=== PATIENT | male | born 1965 | race Caucasian/White ===

== ENCOUNTER 2016-12-16 15:41 | Observation (INO) | payer OTHER ==
--- NOTE | 2016-12-16 16:08 | ED ---
Chest Pain HPI - General Chief Complaint: Chest Pain Stated Complaint: Chest pain Time Seen by Provider: 12/16/16 15:41 Source: patient, RN/MD, EMS, RN notes reviewed, old records reviewed Mode of arrival: EMS Limitations: no limitations - History of Present Illness Initial Comments: This is a 51-year-old male who was seen at [facility] with complaints of chest pain today he was also found to be in atrial fibrillation. Initial set of cardiac enzymes are apparently done and within normal limits with the patient persists in having chest pain. Cardiology was consulted the patient was transferred here for further evaluation. Patient is on anticoagulation already and does have Nitropaste applied. No other complaints at this time. The pain this started around 10 AM and they get better after nitroglycerin. Also aspirin. MD Complaint: chest pain, other - Related Data Home Medications Medication Instructions Recorded Confirmed lamoTRIgine [LaMICtal] 50 mg PO HS 01/17/16 12/16/16 lamoTRIgine [LaMICtal] 100 mg PO BID@0700,1730 01/17/16 12/16/16 Amiodarone [Cordarone] 400 mg PO TID 12/16/16 12/16/16 Atorvastatin [Lipitor] 20 mg PO HS 12/16/16 12/16/16 Furosemide [Lasix] 40 mg PO DAILY 12/16/16 12/16/16 Ipratropium-Albuterol Nebulize 3 ml INHALATION RT-Q4H PRN 12/16/16 12/16/16 [Duoneb 0.5 mg-3 mg/3 ml Soln] Metolazone [Zaroxolyn] 2.5 mg PO DAILY 12/16/16 12/16/16 Nitroglycerin Sl Tabs [Nitrostat] 0.4 mg SUBLINGUAL Q5M PRN 12/16/16 12/16/16 OLANZapine [ZyPREXA] 10 mg PO HS 12/16/16 12/16/16 Rivaroxaban [Xarelto] 20 mg PO DAILY 12/16/16 12/16/16 Verapamil HCl [Verapamil ER] 240 mg PO DAILY 12/16/16 12/16/16 traZODone HCL [Desyrel] 100 mg PO HS 12/16/16 12/16/16 Previous Rx's Medication Instructions Recorded Losartan [Cozaar] 50 mg PO DAILY tab 07/18/15 OLANZapine [ZyPREXA] 2.5 mg PO DAILY tab 07/18/15 Venlafaxine HCl ER [Effexor XR] 300 mg PO DAILY cap.er.24h 07/18/15 Allergies Allergy/AdvReac Type Severity Reaction Status Date / Time No Known Allergies Allergy Verified 12/16/16 16:00 Review of Systems ROS Statement: Those systems with pertinent positive or pertinent negative responses have been documented in the HPI. ROS Other: All systems not noted in ROS Statement are negative. EKG Findings - EKG Results: EKG: interpreted by PAVAN (EKG showed atrial fibrillation rate was 87 QRS 76 QT/ QTc is 366/440 low-voltage QRS and nonspecific ST configuration I see no change when compared to that submitted from [facility].) Past Medical History Past Medical History: Atrial Fibrillation, COPD, Hypertension, Sleep Apnea/CPAP/ BIPAP Additional Past Medical History / Comment(s): Patient does not have CPAP. He does have nebulizer. History of Any Multi-Drug Resistant Organisms: None Reported Past Surgical History: Orthopedic Surgery Additional Past Surgical History / Comment(s): orthopedic surgery 15 yrs old Past Psychological History: Anxiety, Bipolar, Depression Smoking Status: Former smoker Past Alcohol Use History: None Reported Additional Past Alcohol Use History / Comment(s): Patient currently smokes 4-5 cigarettes per day. He has been smoking since for 20 years. He denies any medical marijuana, marijuana, street drug use currently. He denies any alcohol use. Past Drug Use History: None Reported, Cocaine, Marijuana Additional Drug Use History / Comment(s): He states he was once arrested for selling cocaine but does not use cocaine and he has remote history of using marijuana. - Past Family History Mother Family Medical History: Cancer Additional Family Medical History / Comment(s): Mother in her 40s from breast cancer. Father Family Medical History: Coronary Artery Disease (CAD), Hypertension Additional Family Medical History / Comment(s): Father at age 71 from coronary artery disease and history of hypertension Sister(s) Family Medical History: Neurologic Disorder Additional Family Medical History / Comment(s): Patient has 5 sisters and one has depression with suicidal ideation. Patient has 3 brothers with no major medical problems. He has 4 sons that are healthy. General Exam - General Exam Comments Initial Comments: Is a well-developed well-nourished awake alert oriented times female Limitations: no limitations General appearance: alert, in no apparent distress Head exam: Present: atraumatic, normocephalic, normal inspection Eye exam: Present: normal appearance, PERRL, EOMI. Absent: scleral icterus, conjunctival injection, periorbital swelling ENT exam: Present: normal exam, mucous membranes moist Neck exam: Present: normal inspection. Absent: tenderness, meningismus, lymphadenopathy Respiratory exam: Present: normal lung sounds bilaterally. Absent: respiratory distress, wheezes, rales, rhonchi, stridor Cardiovascular Exam: Present: irregular rhythm. Absent: systolic murmur, diastolic murmur, rubs, gallop, clicks GI/Abdominal exam: Present: soft, normal bowel sounds. Absent: distended, tenderness, guarding, rebound, rigid Extremities exam: Present: normal inspection, full ROM, normal capillary refill. Absent: tenderness, pedal edema, joint swelling, calf tenderness Back exam: Present: normal inspection Neurological exam: Present: alert, oriented X3, CN II-XII intact Psychiatric exam: Present: normal affect, normal mood Skin exam: Present: warm, dry, intact, normal color. Absent: rash Course Vital Signs 12/16/16 12/16/16 15:48 17:20 Temperature 98 F 97.9 F Pulse Rate 73 110 H Respiratory 18 18 Rate Blood Pressure 119/86 131/63 O2 Sat by Pulse 95 95 Oximetry Chest Pain MDM - MDM The patient will be admitted for evaluation by cardiology. Disposition Clinical Impression: Chest pain, Unstable angina pectoris Disposition: ADMITTED IP TO THIS HOSP Condition: Stable
[2016-12-16] MEDS ORDERED: MORPHINE SULFATE 4 MG/ML SYRINGE IVP STA (17:02)
--- NOTE | 2016-12-16 17:41 | ED ---
Disposition Clinical Impression: Chest pain, Unstable angina pectoris, Atrial fibrillation Disposition: ADMITTED IP TO THIS HOSP Condition: Stable Referrals: Matt Mccoy MD [Primary Care Provider] - 1-2 days
[2016-12-16] MEDS: SODIUM CHLORIDE 0.9% 1,000 ML IV SCH (18:05)
[2016-12-16] MEDS: NITROGLYCERIN OINT 1 INCH/GM PACKET TOPICAL SCH (18:05)
[2016-12-16] MEDS ORDERED: RIVAROXABAN 10 MG TAB PO SCH (18:30)
[2016-12-16] MEDS ORDERED: LOSARTAN 50 MG TAB PO STA (18:59)
[2016-12-16] MEDS ORDERED: FUROSEMIDE 10 MG/ML 4 ML VIAL IV SCH (19:00)
[2016-12-16] MEDS ORDERED: VENLAFAXINE HCL ER 150 MG CAP PO STA (19:01)
[2016-12-16 19:31] LABS: Creatine Kinase 21 U/L (55-170)
[2016-12-16] MEDS: MORPHINE SULFATE 4 MG/ML SYRINGE IVP PRN (19:43)
[2016-12-16 19:44] LABS: Creatine Kinase MB 0.4 ng/mL (0.0-2.4); Troponin I <0.012 ng/mL (0.000-0.034)
[2016-12-16] MEDS: FUROSEMIDE 10 MG/ML 4 ML VIAL IV SCH (19:45)
[2016-12-16] MEDS: METOLAZONE 2.5 MG TAB PO SCH (19:54)
[2016-12-16] MEDS: VERAPAMIL SR 240 MG TABLET.ER PO SCH (19:54)
--- NOTE | 2016-12-16 20:01 | XR ---
EXAMINATION TYPE: XR chest 2V DATE OF EXAM: 12/16/2016 7:31 PM COMPARISON: Today HISTORY: Short of breath TECHNIQUE: Frontal and lateral views of the chest are obtained. FINDINGS: There is no heart failure nor confluent pneumonic infiltrate. There is mild linear density in the midlung suarez consistent with subsegmental atelectasis. There is no pleural effusion. There are chest leads. Bony thorax is intact. IMPRESSION: Mild bilateral subsegmental atelectasis. No heart failure. No change.
[2016-12-16] MEDS: lamoTRIgine 25 MG TAB PO SCH (21:26)
[2016-12-16] MEDS: OLANZapine 10 MG TAB PO SCH (21:26)
[2016-12-16] MEDS: traZODone HCL 100 MG TAB PO SCH (21:26)
[2016-12-16] MEDS: ATORVASTATIN 20 MG TAB PO SCH (21:26)
[2016-12-16] MEDS ORDERED: AMIODARONE 200 MG TAB PO SCH (22:00)
[2016-12-17] MEDS: NITROGLYCERIN OINT 1 INCH/GM PACKET TOPICAL SCH ×2 (00:25→06:46)
[2016-12-17] MEDS: FUROSEMIDE 10 MG/ML 4 ML VIAL IV SCH (00:25)
[2016-12-17] MEDS: MORPHINE SULFATE 4 MG/ML SYRINGE IVP PRN ×4 (00:26→20:47)
[2016-12-17 00:27] LABS: Creatine Kinase 23 U/L (55-170)
[2016-12-17 00:41] LABS: Creatine Kinase MB 0.5 ng/mL (0.0-2.4); Troponin I <0.012 ng/mL (0.000-0.034)
[2016-12-17] MEDS: SODIUM CHLORIDE 0.9% 1,000 ML IV SCH ×3 (04:35→20:43)
[2016-12-17] MEDS: lamoTRIgine 100 MG TAB PO SCH ×2 (06:28→17:37)
[2016-12-17 06:42] LABS: Cholesterol 141 mg/dL (<200); HDL Cholesterol 53 mg/dL (40-60); Triglycerides 194 mg/dL (<150)
--- NOTE | 2016-12-17 08:22 | P.CRDCN ---
History of Present Illness Consult date: 12/17/16 Requesting physician: Frank Howard Consult reason: chest pain Chief complaint: Chest pressure History of present illness: This is a 51-year-old gentleman with history of COPD, asthma, hypertension, hyperlipidemia, morbid obesity, history of nicotine use, anxiety and depression, history of paroxysmal atrial fibrillation, who presents to the hospital with symptoms of pressure in his midsternal chest area. He states that it's the same symptoms he has when he goes into atrial fibrillation. Patient also has some shortness of breath, more than his usual with his COPD. Patient presented to [facility] yesterday, he had just been discharged from there 2 days prior to that. Patient was given 2 sublingual nitroglycerin on arrival there with relief of symptoms. He was transferred here to [facility] for further evaluation. The patient states that he also had seen Dr. ALEJANDRA Ziegler in the office in the past and that it was him that started him on Xarelto although he does state he only started recently. Patient also recently was on steroids and antibiotics for upper respiratory infection and exacerbation of his COPD. Lab data [facility], WBC 16.7, hemoglobin 15.2, INR 1.1, platelets 288, BUN 11, creatinine 0.6, sodium 138, potassium 4.8. Troponin 0.05 chest x-ray performed at [facility] did not reveal any acute process. EKG shows atrial fibrillation with a controlled ventricular response. S x-ray performed here revealed mild bilateral atelectasis with no evidence of heart failure pressure 110/60 with a heart rate in the 80s. 94% on 3 L of oxygen. Troponins here at [facility] negative 2. Cholesterol 141, triglycerides 194, LDL 49, HDL 53. The patient is currently on amiodarone 400 mg one tablet by mouth 3 times a day, aspirin 325 mg daily, Lipitor 20 daily, Lasix 40 mg IV every 8 hourly, Cozaar 50 mg daily, Zaroxolyn 2-1/2 mg daily, Nitropaste, Xarelto 20 mg daily. At the time of my examination this morning, patient denies any chest discomfort, mild wheezing. Past Medical History Past Medical History: Atrial Fibrillation, COPD, GERD/Reflux, Hypertension, Sleep Apnea/CPAP/BIPAP Additional Past Medical History / Comment(s): [facility]CURRENTLY DOES'N HAVE CPAP. EMPHYSEMA He does have nebulizer. HOME 02 3 LITERS N/C History of Any Multi-Drug Resistant Organisms: None Reported Past Surgical History: Orthopedic Surgery Additional Past Surgical History / Comment(s): 15 yrs old RT FOOT SX."KICKED A CAT FISH STINGER/BONE BROKE OFF IN HIS FOOT CAUSED INFECTION Past Anesthesia/Blood Transfusion Reactions: No Reported Reaction Additional Past Anesthesia/Blood Transfusion Reaction / Comment(s): NEVER HAD ANY BLOOD Past Psychological History: Anxiety, Bipolar, Depression Smoking Status: Former smoker Past Alcohol Use History: None Reported Additional Past Alcohol Use History / Comment(s): STARTED SMOKING 1989, QUIT 2.5 WEEKS AGO, WAS SMOKING JUST UNDER A PACK PER DAY. He denies any medical marijuana, marijuana, street drug use currently. He denies any alcohol use. Past Drug Use History: Cocaine, Marijuana Additional Drug Use History / Comment(s): PT QUIT DRUG USE IN 2001 - Past Family History Mother Family Medical History: Cancer Additional Family Medical History / Comment(s): Mother in her 40s from breast cancer. Father Family Medical History: Coronary Artery Disease (CAD), Hypertension Additional Family Medical History / Comment(s): Father at age 71 from coronary artery disease and history of hypertension Sister(s) Family Medical History: Neurologic Disorder Additional Family Medical History / Comment(s): Patient has 5 sisters and one has depression with suicidal ideation. Patient has 3 brothers with no major medical problems. He has 4 sons that are healthy. Medications and Allergies Home Medications Medication Instructions Recorded Confirmed Type lamoTRIgine [LaMICtal] 50 mg PO HS 01/17/16 12/16/16 History lamoTRIgine [LaMICtal] 100 mg PO BID@0700,1730 01/17/16 12/16/16 History Amiodarone [Cordarone] 400 mg PO TID 12/16/16 12/16/16 History Atorvastatin [Lipitor] 20 mg PO HS 12/16/16 12/16/16 History Furosemide [Lasix] 40 mg PO DAILY 12/16/16 12/16/16 History Ipratropium-Albuterol Nebulize 3 ml INHALATION RT-Q4H PRN 12/16/16 12/16/16 History [Duoneb 0.5 mg-3 mg/3 ml Soln] Metolazone [Zaroxolyn] 2.5 mg PO DAILY 12/16/16 12/16/16 History Nitroglycerin Sl Tabs [Nitrostat] 0.4 mg SUBLINGUAL Q5M PRN 12/16/16 12/16/16 History OLANZapine [ZyPREXA] 10 mg PO HS 12/16/16 12/16/16 History Rivaroxaban [Xarelto] 20 mg PO DAILY 12/16/16 12/16/16 History Verapamil HCl [Verapamil ER] 240 mg PO DAILY 12/16/16 12/16/16 History traZODone HCL [Desyrel] 100 mg PO HS 12/16/16 12/16/16 History Allergies Allergy/AdvReac Type Severity Reaction Status Date / Time No Known Allergies Allergy Verified 12/16/16 16:00 Physical Exam Vitals: Vital Signs Temp Pulse Pulse Pulse Resp BP BP 12/17/16 04:00 84 18 111/64 12/17/16 00:00 91 18 108/69 12/16/16 20:08 98.4 F 59 L 16 139/89 12/16/16 20:00 98.4 F 92 16 12/16/16 18:39 98.1 F 98 18 135/82 12/16/16 18:04 97.1 F L 69 18 125/85 Pulse Ox 12/17/16 04:00 94 L 12/17/16 00:00 91 L 12/16/16 20:08 94 L 12/16/16 20:00 12/16/16 18:39 95 12/16/16 18:04 96 Intake and Output 12/16/16 12/17/16 12/17/16 22:59 06:59 14:59 Other: Voiding Method Toilet Urinal # Voids 1 4 Weight 117.8 kg 117.2 kg PHYSICAL EXAMINATION: HEENT: Head is atraumatic, normocephalic. Pupils equal, round. Neck is supple. There is no elevated jugular venous pressure. HEART EXAMINATION: Heart S1 and S2 irregular irregular CHEST EXAMINATION: Lungs reveal scattered wheezing throughout with decreased air exchange ABDOMEN: Soft, obese, nontender. Bowel sounds are heard. No organomegaly noted. EXTREMITIES: 2+ peripheral pulses with trace evidence of peripheral edema and no calf tenderness noted. NEUROLOGIC patient is awake, alert and oriented -3. . Results Cardiac Enzymes 12/16/16 12/16/16 Range/Units 18:56 23:37 CK-MB (CK-2) 0.4 0.5 (0.0-2.4) ng/mL Troponin I <0.012 <0.012 (0.000-0.034) ng/mL Lipids 12/17/16 Range/Units 05:39 Triglycerides 194 H (<150) mg/dL Cholesterol 141 (<200) mg/dL HDL Cholesterol 53 (40-60) mg/dL Current Medications Generic Name Dose Route Start Last Admin Trade Name Freq PRN Reason Stop Dose Admin Albuterol/Ipratropium 3 ml 12/16/16 17:39 Duoneb 0.5 Mg-3 Mg/3 Ml Soln INHALATION RT-Q4H PRN Shortness Of Breath Amiodarone HCl 400 mg 12/16/16 22:00 12/16/16 21:25 Cordarone PO 400 mg TID BALA Administration Aspirin 325 mg 12/17/16 09:00 Aspirin PO DAILY [facility] Atorvastatin Calcium 20 mg 12/16/16 21:00 12/16/16 21:26 Lipitor PO 20 mg HS BALA Administration Furosemide 40 mg 12/16/16 19:15 12/17/16 00:25 Lasix IV 40 mg Q8HR BALA Administration Sodium Chloride 1,000 mls @ 100 mls/hr 12/16/16 17:45 12/17/16 04:35 Saline 0.9% IV Not Given .Q10H BALA Lamotrigine 100 mg 12/17/16 07:00 12/17/16 06:28 Lamictal PO 100 mg BID@0700,1730 BALA Administration Lamotrigine 50 mg 12/16/16 21:00 12/16/16 21:26 Lamictal PO 50 mg HS BALA Administration Losartan Potassium 50 mg 12/17/16 09:00 Cozaar PO DAILY BALA Metolazone 2.5 mg 12/16/16 19:00 12/16/16 19:54 Zaroxolyn PO 2.5 mg DAILY BALA Administration Morphine Sulfate 4 mg 12/16/16 17:38 12/17/16 04:34 Morphine Sulfate (Inj) IVP 4 mg Q4HR PRN Administration Pain Nitroglycerin 1 inch 12/16/16 18:00 12/17/16 06:46 Nitro-Bid Oint TOPICAL 1 inch Q6HR BALA Administration Olanzapine 10 mg 12/16/16 21:00 12/16/16 21:26 Zyprexa PO 10 mg HS BALA Administration Olanzapine 2.5 mg 12/17/16 09:00 Zyprexa PO DAILY BALA Rivaroxaban 20 mg 12/16/16 18:30 12/16/16 21:26 Xarelto PO 20 mg W/SUPPER BALA Administration Trazodone HCl 100 mg 12/16/16 21:00 12/16/16 21:26 Desyrel PO 100 mg HS BALA Administration Venlafaxine HCl 300 mg 12/17/16 09:00 Effexor Xr PO DAILY BALA Verapamil HCl 240 mg 12/16/16 19:15 12/16/16 19:54 Isoptin Sr PO 240 mg DAILY BALA Administration Intake and Output 12/16/16 12/17/16 12/17/16 22:59 06:59 14:59 Other: Voiding Method Toilet Urinal # Voids 1 4 Weight 117.8 kg 117.2 kg EKG Interpretations (text) EKG shows atrial fibrillation with a controlled ventricular response Assessment and Plan Plan: Assessment and plan #1 chest pain, atypical for acute coronary syndrome. Troponins negative 3. EKG shows atrial fibrillation with a controlled ventricular response, no acute changes noted. #2 atrial fibrillation with controlled ventricular response, paroxysmal in nature. Patient recently started on xarelto #3 hypertension #4 hyperlipidemia #5 morbid obesity #6 COPD, with recent exacerbation, on tapered dose of steroids. #7 asthma #8 bipolar disorder and depression #9 nicotine dependence history, patient states he quit smoking recently Plan We will obtain an echocardiogram with Doppler study. Discontinue aspirin. Decrease dose of amiodarone. Discontinue Nitropaste. Obtain records from the office. Further recommendations to follow. DNP note has been reviewed, I agree with a documented findings and plan of care. Patient was seen and examined.
[2016-12-17] MEDS ORDERED: ASPIRIN 325 MG TAB PO SCH (09:00)
[2016-12-17] MEDS ORDERED: METOLAZONE 2.5 MG TAB PO SCH (09:00)
[2016-12-17] MEDS ORDERED: FUROSEMIDE 40 MG TAB PO SCH (09:00)
[2016-12-17] MEDS ORDERED: VERAPAMIL SR 240 MG TABLET.ER PO SCH (09:00)
[2016-12-17] MEDS: IPRATROPIUM-ALBUTEROL 3 ML NEB INHALATION PRN ×3 (09:06→15:17)
[2016-12-17] MEDS ORDERED: ALPRAZolam 0.25 MG TAB PO PRN (09:38)
[2016-12-17] MEDS ORDERED: NITROGLYCERIN SL TABS 0.4 MG TAB SUBLINGUAL PRN (09:38)
[2016-12-17] MEDS ORDERED: ASPIRIN 325 MG TAB PO STA (09:38)
[2016-12-17] MEDS ORDERED: ALPRAZolam 0.5 MG TAB PO PRN (09:38)
[2016-12-17] MEDS ORDERED: SODIUM CHLORIDE 0.9% 1,000 ML in EMPTY BAG 1 BAG IV ONE (09:38)
[2016-12-17] MEDS ORDERED: ATORVASTATIN 80 MG TAB PO STA (09:38)
--- NOTE | 2016-12-17 09:42 | P.PN ---
Progress Note - Text This is an addendum to the dictated cardiology consultation. The patient has a known history of atrial fibrillation, probably permanent had multiple admission to [facility] recently who presented yesterday to the emergency room at [facility] with symptoms of chest discomfort and progressive dyspnea. He has been followed by Dr. Ziegler in the past. He has no history of documented ischemic heart disease or congestive heart failure but he has been complaining of the chest discomfort on and off not always exertional in pattern. He has occasional peripheral edema but no PND nor orthopnea. He has stopped smoking 2 weeks ago. He has been started on anticoagulation. His physical examination shows scattered rhonchi and wheezes, atrial fibrillation with trace edema. In view of the persistent recurrent symptoms of chest discomfort, the history of atrial fibrillation, hypertension and hyperlipidemia I have recommended to proceed with coronary angiography. He'll be scheduled to undergo the procedure by Dr. Ziegler tomorrow. The risks and the complications were discussed with the patient who is in full understanding and agreement. Thank you for this consult we will follow with you.
[2016-12-17] MEDS: AMIODARONE 200 MG TAB PO SCH ×3 (11:13→20:45)
[2016-12-17] MEDS: OLANZapine 2.5 MG TAB PO SCH (11:14)
[2016-12-17] MEDS: LOSARTAN 50 MG TAB PO SCH (11:14)
[2016-12-17] MEDS: METOLAZONE 2.5 MG TAB PO SCH (11:15)
[2016-12-17] MEDS: VENLAFAXINE HCL ER 150 MG CAP PO SCH (11:15)
[2016-12-17] MEDS: VERAPAMIL SR 240 MG TABLET.ER PO SCH (11:16)
--- NOTE | 2016-12-17 12:54 | ECHOF ---
Referral Reason:AFIB MEASUREMENTS -------- HEIGHT: 165.1 cm WEIGHT: 117.0 kg BP: RVIDd: 3.3 cm (< 3.3) IVSd: 1.4 cm (0.6 - 1.1) LVIDd: 4.4 cm (3.9 - 5.3) LVPWd: 1.4 cm (0.6 - 1.1) IVSs: 1.7 cm LVIDs: 3.6 cm LVPWs: 1.8 cm LA Diam: 4.7 cm (2.7 - 3.8) LAESV Index (A-L): 45.21 ml/m Ao Diam: 3.0 cm (2.0 - 3.7) AV Cusp: 2.3 cm (1.5 - 2.6) LA Diam: 4.7 cm (2.7 - 3.8) MV EXCURSION: 23.905 mm (> 18.000) MV EF SLOPE: 148 mm/s (70 - 150) EPSS: 0.6 cm MV E Hung: 0.64 m/s MV DecT: 198 ms MV A Hung: 0.40 m/s MV E/A Ratio: 1.61 RAP: 5.00 mmHg RVSP: 28.56 mmHg FINDINGS -------- Atrial fibrillation. This was a technically adequate study. There is mild concentric left ventricular hypertrophy. Overall left ventricular systolic function is low-normal with, an EF between 50 - 55 %. The right ventricle is normal in size. LA is severely dilated >40 ml/m2 The right atrial size is normal. There is mild aortic valve sclerosis. There is no evidence of aortic regurgitation. Mild mitral annular calcification present. Mild mitral regurgitation is present. Mild tricuspid regurgitation present. There is no evidence of pulmonary hypertension. The right ventricular systolic pressure, as measured by Doppler, is 28.56mmHg. There is no pulmonic regurgitation present. The aortic root size is normal. There is no pericardial effusion. CONCLUSIONS -------- 1. There is mild concentric left ventricular hypertrophy. 2. There is no pulmonic regurgitation present. 3. The aortic root size is normal. 4. There is no pericardial effusion. 5. Overall left ventricular systolic function is low-normal with, an EF between 50 - 55 %. 6. LA is severely dilated >40 ml/m2 7. There is mild aortic valve sclerosis. 8. Mild mitral annular calcification present. 9. Mild mitral regurgitation is present. 10. Mild tricuspid regurgitation present. 11. There is no evidence of pulmonary hypertension. 12. The right ventricular systolic pressure, as measured by Doppler, is 28.56mmHg. [employer] TEACHER: Jaelyn Gregory RDCS
--- NOTE | 2016-12-17 14:02 | HP ---
DATE OF ADMISSION: 12/16/2016 PRESENTING COMPLAINT: Heart racing. HISTORY OF PRESENTING COMPLAINT: This is a 51-year-old patient of Dr. Mccoy whose chronic medical stable conditions include GERD, hypertension, bipolar disorder. Patient is on home oxygen 3 L. Patient has had about 10 admissions to [facility] in the last 6 months he states for episode symptoms that include breaking into a cold sweat, short of breath, chest pain, heart racing. Found to be in atrial fibrillation. Patient had another episode yesterday and he was transferred here by Dr. Steve Ziegler for further work-up. Patient also has been wheezing, coughing, having short of breath. Patient stopped smoking 2 weeks ago. REVIEW OF SYSTEMS: CONSTITUTIONAL: Tired. HEENT: None. RESPIRATORY: As above. CARDIOVASCULAR: Heart racing. GASTROINTESTINAL: None. GENITOURINARY: None. MUSCULOSKELETAL: Aches and pains in the joints. DERMATOLOGICAL: None. HEMATOLOGICAL: None. LYMPHATIC: None. PSYCHIATRY: None. NEUROLOGICAL: None. PAST MEDICAL HISTORY: Atrial fibrillation, COPD, GERD, hypertension, sleep apnea being worked up, emphysema home oxygen 3 L. PAST SURGICAL HISTORY: Right foot surgery. SOCIAL HISTORY: Patient smoked for about 27 years; stopped smoking about 2 weeks ago. Patient in 2001 stopped doing cocaine, marijuana, crack, alcohol. Lives with his girlfriend. Patient is on disability. FAMILY HISTORY: Mother of breast cancer in his 40s. HOME MEDICATIONS: 1. Desyrel 100 mg q.h.s. 2. Lamictal 50 mg q.h.s. 3. Lamictal 100 mg p.o. b.i.d. 4. Verapamil ER 240 mg daily. 5. Effexor XR 300 mg daily. 6. Xarelto 20 mg daily. 7. Zyprexa 2.5 p.o. daily. 8. Zyprexa 10 mg p.o. q.h.s. 9. Nitrostat 0.4 sublingual q.5 p.r.n. 10. Zaroxolyn 2.5 p.o. daily. 11. Cozaar 50 mg p.o. daily. 12. DuoNeb q.4 p.r.n. 13. Lasix 40 mg a day. 14. Lipitor 20 mg q.h.s. 15. Cordarone 400 mg p.o. t.i.d. ALLERGIES: None. On examination, temperature 98.4, pulse 91, respirations 18, blood pressure 108/69, pulse ox 91% on room air. GENERAL APPEARANCE: Obese, BMI of 41%, sitting up, tired-appearing. EYES: Pupils equal, conjunctivae normal. HEENT: Oral cavity normal. NECK: JVD not raised. Mass not palpable. Respiratory effort increased. LUNGS: Diminished breath sounds. Mild wheezing. CARDIOVASCULAR: First and second sounds normal. No edema. ABDOMEN: Soft, nontender. Liver and spleen not palpable. LYMPHATIC: No lymph node palpable in neck or axillae. PSYCHIATRY: Alert and oriented x3. Mood and affect normal. NEUROLOGICAL: Pupils equal. Cranial nerves grossly intact. Power and sensation grossly intact. INVESTIGATIONS: Troponin x2 are negative. EKG shows atrial fibrillation, rate controlled. ASSESSMENT: 1. Persistent atrial fibrillation, sometimes with a high heart rate. 2. Acute chronic obstructive pulmonary disease exacerbation. The patient just stopped smoking 3. Gastroesophageal reflux disease. 4. Essential hypertension. 5. Morbid obesity, body mass index of 41.7. 6. Chronic hypoxic respiratory failure on 3 L of oxygen at home. PLAN: Home medications are resumed. Patient already on Xarelto. Patient is put on breathing treatments. Cardiology is consulted because patient does get chest pressures. Cardiac ischemia, rule out with a cardiac catheterization. Patient counseled again to keep off smoking.
[2016-12-17] MEDS: ATORVASTATIN 20 MG TAB PO SCH (20:44)
[2016-12-17] MEDS: FUROSEMIDE 40 MG TAB PO SCH (20:44)
[2016-12-17] MEDS: lamoTRIgine 25 MG TAB PO SCH (20:44)
[2016-12-17] MEDS: OLANZapine 10 MG TAB PO SCH (20:45)
[2016-12-17] MEDS: traZODone HCL 100 MG TAB PO SCH (20:45)
[2016-12-18] MEDS: MORPHINE SULFATE 4 MG/ML SYRINGE IVP PRN ×5 (02:29→21:59)
[2016-12-18] MEDS: IPRATROPIUM-ALBUTEROL 3 ML NEB INHALATION PRN (05:46)
[2016-12-18] MEDS: lamoTRIgine 100 MG TAB PO SCH ×2 (06:21→17:08)
[2016-12-18] MEDS: AMIODARONE 200 MG TAB PO SCH ×3 (06:21→20:43)
[2016-12-18] MEDS: OLANZapine 2.5 MG TAB PO SCH (06:21)
[2016-12-18] MEDS: LOSARTAN 50 MG TAB PO SCH (06:21)
[2016-12-18] MEDS: VERAPAMIL SR 240 MG TABLET.ER PO SCH (06:22)
[2016-12-18] MEDS: VENLAFAXINE HCL ER 150 MG CAP PO SCH (06:22)
[2016-12-18] MEDS: METOLAZONE 2.5 MG TAB PO SCH (06:22)
[2016-12-18 07:28] LABS: Anion Gap 10 mmol/L; Blood Urea Nitrogen 22 mg/dL (9-20); Calcium 8.6 mg/dL (8.4-10.2); Carbon Dioxide 31 mmol/L (22-30); Chloride 96 mmol/L (98-107); Glucose 104 mg/dL (74-99); Non-African American GFR(MDRD) >60 (>60 ml/min/1.73 sqM); Potassium 3.2 mmol/L (3.5-5.1); Sodium 137 mmol/L (137-145)
[2016-12-18] MEDS: SODIUM CHLORIDE 0.9% 1,000 ML IV SCH ×2 (08:03→20:27)
[2016-12-18] MEDS: FUROSEMIDE 40 MG TAB PO SCH ×2 (08:09→20:43)
[2016-12-18] MEDS: POTASSIUM CHLORIDE 20 MEQ, LIDOCAINE 2% INJ 20 MG in SODIUM CHLORIDE 0.9% 100 ML IVPB SCH ×2 (08:59→11:07)
[2016-12-18] MEDS ORDERED: LIDOCAINE 2% INJ 20 MG/ML (20 ML MDV) ONE (10:57)
[2016-12-18] MEDS ORDERED: ASPIRIN 325 MG TAB ONE (10:57)
[2016-12-18] MEDS ORDERED: MIDAZOLAM 2 MG/2 ML VIAL ONE (10:58)
[2016-12-18] MEDS ORDERED: diphenhydrAMINE 50 MG/ML 1 ML VIAL ONE (10:58)
[2016-12-18] MEDS ORDERED: SODIUM CHLORIDE 0.9% (PF) 10 ML VIAL ONE (10:59)
[2016-12-18] MEDS ORDERED: VERAPAMIL 2.5 MG/ML 2 ML AMP ONE (10:59)
[2016-12-18] MEDS ORDERED: IV FLUID CONTINUATION 175 ML IV ONE (11:18)
[2016-12-18] MEDS ORDERED: SODIUM CHLORIDE 0.9% 500 ML IV ONE (11:25)
[2016-12-18] MEDS ORDERED: ASPIRIN 325 MG TAB PO ONE (11:25)
[2016-12-18] MEDS ORDERED: diphenhydrAMINE 50 MG/ML 1 ML VIAL IVP ONE (11:28)
[2016-12-18] MEDS ORDERED: MIDAZOLAM 2 MG/2 ML VIAL IV ONE (11:30)
[2016-12-18] MEDS ORDERED: LIDOCAINE 2% INJ 20 MG/ML SQ ONE (11:33)
[2016-12-18] MEDS ORDERED: HEPARIN SODIUM 1,000 UNIT/ML VIAL ONE (11:35)
[2016-12-18] MEDS: VERAPAMIL SYRINGE (5 MG/10 ML) INTRAARTER ONE ×2 (11:36→11:55)
[2016-12-18] MEDS ORDERED: IOHEXOL 350 MG/ML 100 ML BOTTLE INJ ONE (11:55)
[2016-12-18] MEDS ORDERED: RX INFO: IV CONTRAST WAS GIVEN 1 EACH MISC MISCELLANE PRN (12:07)
[2016-12-18] MEDS ORDERED: SODIUM CHLORIDE 0.9% 1,000 ML IV SCH (12:15)
[2016-12-18] MEDS: methylPREDNISolone SOD SUCCI 40 MG/ML 1 ML VIAL IV SCH ×2 (17:06→23:19)
[2016-12-18] MEDS: METOPROLOL TARTRATE 25 MG TAB PO SCH ×2 (17:08→20:45)
--- NOTE | 2016-12-18 19:56 | PN ---
DATE OF SERVICE: 12/18/2016 PRESENTING COMPLAINT: Heart racing, wheezing. INTERVAL HISTORY: This is a patient who presented with atrial fibrillation with rapid ventricular rate. Heart rate is better controlled today. The patient did undergo a cardiac cath. Troponin did not show any blockages. The patient was also admitted for chronic obstructive pulmonary disease exacerbation. Some shortness of breath and wheezing is present. Review of systems done for constitutional, cardiovascular, GI, pulmonary; relevant findings as above. Current medications are reviewed and include: On examination, afebrile, pulse 91, respirations 20, blood pressure 101/85, pulse of 93% on 2 liters. GENERAL APPEARANCE: Lying in bed, tired-appearing. EYES: Pupils equal conjunctivae normal. NECK: JVD not raised. Mass not palpable. RESPIRATORY: Effort increased. LUNGS: Diminished breath sounds. Mild wheezing. CARDIOVASCULAR: Heart sounds irregular. No edema. ABDOMEN: Soft, nontender. Liver and spleen not palpable. PSYCHIATRY: Alert and oriented x3. Mood and affect normal. INVESTIGATIONS: Potassium 3.2. BUN 22, creatinine 1.07. ASSESSMENT: 1. Persistent atrial fibrillation, heart rate increased on presentation. 2. Acute chronic obstructive pulmonary disease exacerbation in a patient who just stopped smoking. 3. Gastroesophageal reflux disease. 4. Essential hypertension. 5. Moderate obesity, body mass index of 41.7. 6. Chronic hypoxic respiratory failure, on 3 liters of oxygen at home. PLAN: Continue bronchodilators. Give a short burst of steroids, hoping the patient to be discharged in the next 24 hours. The patient was told again to keep off smoking.
[2016-12-18] MEDS: lamoTRIgine 25 MG TAB PO SCH (20:43)
[2016-12-18] MEDS: OLANZapine 10 MG TAB PO SCH (20:43)
[2016-12-18] MEDS: ATORVASTATIN 20 MG TAB PO SCH (20:43)
[2016-12-18] MEDS: traZODone HCL 100 MG TAB PO SCH (20:43)
[2016-12-18] MEDS: IPRATROPIUM-ALBUTEROL 3 ML NEB INHALATION SCH ×2 (21:05→21:06)
[2016-12-18] MEDS: FUROSEMIDE 10 MG/ML 4 ML VIAL IV SCH (21:14)
--- NOTE | 2016-12-18 21:27 | CC ---
DATE OF SERVICE: PROCEDURE: Left heart catheterization, coronary angiography and left ventriculography. PERFORMED BY: Dr. Steve Ziegler. CLINICAL INFORMATION: Marcell Noonan is a 51-year-old gentleman with a severe advanced COPD, smoking and he smoked up until about a week to 10 days ago. He has recurrent episodes of atrial fibrillation, which is now persistent. He comes in with increasing shortness of breath and also chest discomfort. In view of his ongoing chest pressure and heaviness, he was advised coronary angiography after due discussion and explaining the risks, benefits, and options. There were no family members available. PROCEDURE NOTE: Under local anesthesia and strict aseptic precautions, a 6 Indian introducer was placed in general placed in the right radial artery. I used an Ultima one catheter for selective coronary injection of the left system. I used the same catheter for a conus branch, which was coming from a separate ostium. I used a standard JR 4 catheter for selective injection of the small nondominant RCA, which arose just below the conus branch with a separate origin. LV gram was performed using a pigtail catheter. The patient tolerated the procedure well. The sheath was taken out and TR band applied as per protocol and the saturation of the fingers was same as it was on his left hand. It was about 90%. Results were discussed with the patient. No other family member was available and I also spoke to Dr. Bravo. Patient was sent to the room in stable condition. CARDIAC CATHETERIZATION FINDINGS: The left ventricular end diastolic pressure was 15 mmHg and there was no gradient across aortic valve. CORONARY ANGIOGRAPHIC FINDINGS: RIGHT CORONARY ARTERY: Technically this is a nondominant vessel. There is a separate conus branch that comes off and this is free of significant disease. Right coronary artery is a nondominant, small-caliber, vessel that gives off an acute marginal supplies limited amount of myocardium. No significant disease, minor irregularities noted. LEFT MAIN CORONARY ARTERY: Short, patent, disease-free vessel that bifurcates into LAD and circumflex. LEFT ANTERIOR DESCENDING CORONARY ARTERY: Good caliber vessel extends along the anterior wall, gives off several septal branches, a good-sized diagonal branch in the midportion, runs all the way to the apex, curves over the apex and supplies the entire inferoapical wall. There are only minor irregularities. No significant disease and LAD is a large distribution vessel. LEFT POSTERIOR CIRCUMFLEX CORONARY ARTERY: Technically a very dominant vessel, gives off a large obtuse marginal in the midportion, 2 small obtuse marginals proximally and all of these obtuse marginal do not have any significant disease. The distal circumflex divides into PLV and PDA, both of which have minor irregularities and supply a fair amount of myocardium. The circumflex is therefore dominant and has minor irregularities. No significant disease. LEFT VENTRICULOGRAM: This was performed in 30 degree JOHANSEN projection and revealed left ventricle, which is at upper limits of normal with a mild global decrease in contractility, estimated ejection fraction of 45% without mitral regurgitation. FINAL IMPRESSION: This patient has a left dominant system, no significant obstructive CAD, slightly elevated filling pressures and mild global decrease in contractility estimated ejection fraction of 45%. He has chronic atrial fibrillation and this could be explanation for his low ejection fraction. RECOMMENDATIONS: Findings were discussed with the patient at length. There were no family members available. I will switch him to amiodarone and beta yonas for rate control and also seek full pulmonary evaluation and based on this, he can hopefully be discharged in next 24 to 48 hours. The patient has been counseled regarding the need to quit smoking.
[2016-12-19] MEDS: MORPHINE SULFATE 4 MG/ML SYRINGE IVP PRN ×2 (02:03→06:49)
[2016-12-19] MEDS: SODIUM CHLORIDE 0.9% 1,000 ML IV SCH (06:27)
[2016-12-19] MEDS: methylPREDNISolone SOD SUCCI 40 MG/ML 1 ML VIAL IV SCH (06:30)
[2016-12-19] MEDS: lamoTRIgine 100 MG TAB PO SCH (06:30)
[2016-12-19 06:40] LABS: Basophils # (A) 0.1 k/uL (0-0.2); Basophils % (A) 1 %; CH 30.8; CHCM 33.4; Eosinophils % (A) 0 %; HCT 42.4 % (39.0-53.0); HDW 2.54; HGB 14.4 gm/dL (13.0-17.5); Luc # (Auto) 0.05; Luc % (Auto) 0; Lymphocytes # (A) 0.7 k/uL (1.0-4.8); Lymphocytes % (A) 6 %; MCH 31.3 pg (25.0-35.0); MCHC 33.9 g/dL (31.0-37.0); MCV 92.4 fL (80.0-100.0); Mean Platelet Volume 7.8; Monocytes # (A) 0.2 k/uL (0-1.0); Monocytes % (A) 2 %; Neutrophils # (A) 10.2 k/uL (1.3-7.7); Neutrophils % (A) 91 %; RBC 4.59 m/uL (4.30-5.90); WBC 11.2 k/uL (3.8-10.6); WBC (Perox) 11.57
[2016-12-19 06:57] LABS: Anion Gap 13 mmol/L; Blood Urea Nitrogen 21 mg/dL (9-20); Calcium 9.4 mg/dL (8.4-10.2); Carbon Dioxide 30 mmol/L (22-30); Chloride 94 mmol/L (98-107); Glucose 145 mg/dL (74-99); Non-African American GFR(MDRD) >60 (>60 ml/min/1.73 sqM); Potassium 3.9 mmol/L (3.5-5.1); Sodium 137 mmol/L (137-145)
[2016-12-19] MEDS: VENLAFAXINE HCL ER 150 MG CAP PO SCH (07:59)
[2016-12-19] MEDS: FUROSEMIDE 40 MG TAB PO SCH (07:59)
[2016-12-19] MEDS: AMIODARONE 200 MG TAB PO SCH (07:59)
[2016-12-19] MEDS: OLANZapine 2.5 MG TAB PO SCH (07:59)
[2016-12-19] MEDS: METOPROLOL TARTRATE 25 MG TAB PO SCH (08:00)
[2016-12-19] MEDS: LOSARTAN 50 MG TAB PO SCH (08:00)
[2016-12-19] MEDS: METOLAZONE 2.5 MG TAB PO SCH (08:00)
[2016-12-19 08:04] VITALS: TEMP 97.4
[2016-12-19] MEDS: IPRATROPIUM-ALBUTEROL 3 ML NEB INHALATION SCH ×2 (08:31→11:53)
--- NOTE | 2016-12-19 11:20 | P.PN ---
Subjective This a 51-year-old gentleman who follows with Dr. ALEJANDRA Ziegler in the office. He has a history of COPD, nicotine dependence, atrial fibrillation. He presented to the hospital with complaints of increasing shortness of breath and chest discomfort. He underwent cardiac catheterization yesterday by Dr. ALEJANDRA Ziegler that showed significant obstructive CAD, slightly elevated filling pressures and mild global decreased contractility with an ejection fraction of 45%. Yesterday his amiodarone was decreased to 20 mg by mouth 3 times a day and he was started on Lopressor 25 mg by mouth 3 times a day. Heart rates remain slightly elevated at around 100-120. Upon examination this morning, patient is sitting up in bed without any complaints of distress. He denies complaints of chest discomfort, shortness of breath, palpitations, dizziness, lightheadedness or syncope. He does complain of some lower extremity edema but he says is chronic but better than usual. Objective - Vital Signs Vital signs: Vital Signs Temp 97.4 F L 12/19/16 08:00 Pulse 88 12/19/16 08:46 Resp 18 12/19/16 08:00 BP 119/74 12/19/16 08:00 Pulse Ox 90 L 12/19/16 08:33 Intake & Output 12/18/16 12/19/16 12/19/16 18:59 06:59 18:59 Intake Total 560 1080 240 Output Total 800 1300 Balance -240 -220 240 Weight 119.1 kg Intake: IV 200 Intake, IV Titration 600 Amount Sodium Chloride 0.9% 1, 600 000 ml @ 75 mls/hr IV . [id number] [facility] Rx#:[id number] Oral 360 480 240 Output: Urine 800 1300 Other: Voiding Method Toilet Toilet Toilet Urinal Urinal Urinal # Voids 2 # Bowel Movements 0 - Exam PHYSICAL EXAMINATION: HEENT: Head is atraumatic, normocephalic. Pupils equal, round. Neck is supple. There is no elevated jugular venous pressure. HEART EXAMINATION: Heart sounds irregular irregular, S1 and S2 normal. No murmur or gallop heard. CHEST EXAMINATION: Lungs reveal scattered rhonchi and wheezes. No chest wall tenderness is noted on palpation or with deep breathing. ABDOMEN: Soft, obese, nontender. Bowel sounds are heard. No organomegaly noted. EXTREMITIES: 2+ peripheral pulses with evidence of trace peripheral edema and no calf tenderness noted. NEUROLOGIC patient is awake, alert and oriented x3. . - Labs CBC & Chem 7: 12/19/16 06:10 12/19/16 06:10 Labs: Abnormal Lab Results - Last 24 Hours (Table) 12/19/16 12/19/16 Range/Units 06:10 06:10 WBC 11.2 H (3.8-10.6) k/uL Neutrophils # 10.2 H (1.3-7.7) k/uL Lymphocytes # 0.7 L (1.0-4.8) k/uL Chloride 94 L (98-107) mmol/L BUN 21 H (9-20) mg/dL Glucose 145 H (74-99) mg/dL Assessment and Plan Plan: Assessment and plan #1 chest pain, atypical with cardiac catheterization showing no obstructive coronary artery disease #2 atrial fibrillation with variable ventricular response, on amiodarone and metoprolol, anticoagulated on Xarelto #3 hypertension #4 hyperlipidemia #5 morbid obesity #6 COPD #7 asthma #8 bipolar disorder and depression #9 nicotine dependence history, patient states he recently quit smoking Cardiac standpoint, we will increase metoprolol to 50 mg by mouth twice a day, continue amiodarone 200 mg by mouth 3 times a day. From our standpoint patient is stable for discharge. He will follow-up in the office with Dr. ALEJANDRA Ziegler in one week. [employer] note has been reviewed, I agree with a documented findings and plan of care. Patient was seen and examined.
[2016-12-19 13:05] VITALS: BP 99/52; PULSE 88; RESP 16
--- NOTE | 2016-12-19 14:48 | P.CNPUL ---
History of Present Illness Consult date: 12/19/16 Reason for consult: COPD History of present illness: 51-year-old male patient, a chronic smoker with known history of COPD and suspected obstructive sleep apnea, along with history of paroxysmal atrial fibrillation, hyperlipidemia, hypertension, generalized anxiety disorder/ depression, who comes into the hospital because of increased cough, chest congestion, midsternal pain. The patient was initially seen at [facility] and following that the patient was brought into [facility] for further investigation. The patient underwent a cardiac catheterization and he turned out to have normal coronaries. At that point, a pulmonary consultation was requested regarding symptoms of COPD and bronchitis. The patient is already been started on a combination of bronchodilators and steroids. He is or the feeling better. His chest discomfort and congestion is improved significantly. He is a chronic smoker. He utilizes Symbicort as maintenance on outpatient basis however he has not been compliant to his respiratory medications. He also has typical features of obstructive sleep apnea. He snores loud stops breathing at night and he wakes up quite sleepy and somnolent during the day and he has already been scheduled to undergo a screening polysomnogram at [facility] in 2 weeks time. No DVTs. No pulmonary embolism. He is on Xarelto and is tolerating that anticoagulants without any major difficulties or complications or side effects. Review of Systems For review of system was done and the positive signs are almost above in history of present illness Past Medical History Past Medical History: Atrial Fibrillation, COPD, GERD/Reflux, Hypertension, Sleep Apnea/CPAP/BIPAP Additional Past Medical History / Comment(s): Obesity, COPD, paroxysmal defibrillation, hypertension, hyperlipidemia, generalized anxiety disorder and depression, suspected obstructive sleep apnea awaiting further investigation, GE reflux, History of Any Multi-Drug Resistant Organisms: None Reported Past Surgical History: Orthopedic Surgery Additional Past Surgical History / Comment(s): 15 yrs old RT FOOT SX."KICKED A CAT FISH STINGER/BONE BROKE OFF IN HIS FOOT CAUSED INFECTION, cardiac catheterization Past Anesthesia/Blood Transfusion Reactions: No Reported Reaction Additional Past Anesthesia/Blood Transfusion Reaction / Comment(s): NEVER HAD ANY BLOOD Past Psychological History: Anxiety, Bipolar, Depression Smoking Status: Former smoker Past Alcohol Use History: None Reported Additional Past Alcohol Use History / Comment(s): STARTED SMOKING 1989, QUIT 2.5 WEEKS AGO, WAS SMOKING JUST UNDER A PACK PER DAY. He denies any medical marijuana, marijuana, street drug use currently. He denies any alcohol use. Past Drug Use History: Cocaine, Marijuana Additional Drug Use History / Comment(s): PT QUIT DRUG USE IN 2001 - Past Family History Mother Family Medical History: Cancer Additional Family Medical History / Comment(s): Mother in her 40s from breast cancer. Father Family Medical History: Coronary Artery Disease (CAD), Hypertension Additional Family Medical History / Comment(s): Father at age 71 from coronary artery disease and history of hypertension Sister(s) Family Medical History: Neurologic Disorder Additional Family Medical History / Comment(s): Patient has 5 sisters and one has depression with suicidal ideation. Patient has 3 brothers with no major medical problems. He has 4 sons that are healthy. Medications and Allergies Home Medications Medication Instructions Recorded Confirmed Type lamoTRIgine [LaMICtal] 50 mg PO HS 01/17/16 12/16/16 History lamoTRIgine [LaMICtal] 100 mg PO BID@0700,1730 01/17/16 12/16/16 History Atorvastatin [Lipitor] 20 mg PO HS 12/16/16 12/16/16 History Furosemide [Lasix] 40 mg PO DAILY 12/16/16 12/16/16 History Ipratropium-Albuterol Nebulize 3 ml INHALATION RT-Q4H PRN 12/16/16 12/16/16 History [Duoneb 0.5 mg-3 mg/3 ml Soln] Metolazone [Zaroxolyn] 2.5 mg PO DAILY 12/16/16 12/16/16 History Nitroglycerin Sl Tabs [Nitrostat] 0.4 mg SUBLINGUAL Q5M PRN 12/16/16 12/16/16 History OLANZapine [ZyPREXA] 10 mg PO HS 12/16/16 12/16/16 History Rivaroxaban [Xarelto] 20 mg PO DAILY 12/16/16 12/16/16 History traZODone HCL [Desyrel] 100 mg PO HS 12/16/16 12/16/16 History Allergies Allergy/AdvReac Type Severity Reaction Status Date / Time No Known Allergies Allergy Verified 12/16/16 16:00 Physical Exam Vitals: Vital Signs Temp Pulse Pulse Pulse Resp BP Pulse Ox 12/19/16 12:16 80 12/19/16 12:00 88 16 99/52 90 L 12/19/16 11:55 84 12/19/16 08:46 88 12/19/16 08:33 86 90 L 12/19/16 08:00 97.4 F L 132 H 18 119/74 91 L 12/19/16 04:00 97.6 F 94 18 107/72 94 L 12/19/16 00:00 97.1 F L 82 82 18 109/68 90 L 12/18/16 20:55 80 12/18/16 20:45 80 12/18/16 20:00 73 73 19 107/51 93 L 12/18/16 16:00 80 16 96/58 12/18/16 15:52 91 16 148/67 94 L 12/18/16 14:52 80 16 101/85 93 L Intake and Output 12/18/16 12/19/16 12/19/16 22:59 06:59 14:59 Intake Total 240 1080 460 Output Total 950 950 Balance -710 130 460 Intake: Intake, IV Titration 600 Amount Sodium Chloride 0.9% 1, 600 000 ml @ 75 mls/hr IV . [id number] [facility] Rx#:[id number] Oral 240 480 460 Output: Urine 950 950 Other: Voiding Method Toilet Toilet Toilet Urinal Urinal Urinal # Voids 1 2 Weight 119.1 kg Obese, comfortable no acute distress.Head exam was generally normal. There was no scleral icterus or corneal arcus. Mucous membranes were moist. Neck is short and supple and there is significant crowding of the posterior oropharynx. There is no goiter or neck masses. Mallampati class III. Lung sounds are diminished bilaterally along with some prolongation of the expiratory phase of breathing and scattered external wheezes throughout the lung suarez.Cardiac exam revealed the PMI to be normally situated and sized. The rhythm was regular and no extrasystoles were noted during several minutes of auscultation. The first and second heart sounds were normal and physiologic splitting of the second heart sound was noted. There were no murmurs, rubs, clicks, or gallops.Abdominal exam revealed normal bowel sounds. The abdomen was soft, non- tender, and without masses, organomegaly, or appreciable enlargement of the abdominal aorta.Examination of the extremities revealed easily palpable radial, femoral and pedal pulses. There was no cyanosis, clubbing or edema. Results - Laboratory Findings CBC and BMP: 12/19/16 06:10 12/19/16 06:10 Abnormal lab findings: Abnormal Labs 12/16/16 12/16/16 12/17/16 18:56 23:37 05:39 WBC Neutrophils # Lymphocytes # Potassium Chloride Carbon Dioxide BUN Glucose Total Creatine Kinase 21 L 23 L Triglycerides 194 H 12/18/16 12/19/16 12/19/16 06:49 06:10 06:10 WBC 11.2 H Neutrophils # 10.2 H Lymphocytes # 0.7 L Potassium 3.2 L Chloride 96 L 94 L Carbon Dioxide 31 H BUN 22 H 21 H Glucose 104 H 145 H Total Creatine Kinase Triglycerides - Diagnostic Findings Chest x-ray: image reviewed Assessment and Plan Plan: Assessment 1 COPD with symptoms of acute bronchitis, improving 2 chest pain, atypical, normal cardiac catheterization, normal cardiac enzymes 3 obesity with obvious features of obstructive sleep apnea, awaiting PSG 4 paroxysmal atrial fibrillation 5 hypertension 6 hyperlipidemia 7 obesity, BMI of 42.4 8 nicotine addiction/smoking 9 preserved LV function, mild concentric left likely hypertrophy, ejection fraction of 50-55%, no evidence of any pulmonary hypertension Plan Smoking cessation counseling was done. The patient will be discharged home on Symbicort inhaler 160/4.52 puffs twice a day. The patient will also be given Ventolin rescue inhaler. He will be completing a prednisone burst taper. He will undergoes polysomnogram and I'll see her back in the office to discuss the results and further recommendations are to follow accordingly. Encourage weight loss. Cardiac and position results were noted.
[2016-12-19] MEDS ORDERED: RIVAROXABAN 10 MG TAB PO SCH (17:30)
[2016-12-19] MEDS ORDERED: METOPROLOL TARTRATE 50 MG TAB PO SCH (21:00)
--- NOTE | 2016-12-19 21:17 | DS ---
DATE OF ADMISSION: 12/16/2016 DATE OF DISCHARGE: 12/19/2016 FINAL DIAGNOSIS(ES): 1. Persistent atrial fibrillation increased ( ) on presentation. 2. Acute chronic obstructive pulmonary disease exacerbation in a patient who just stopped smoking. 3. Gastroesophageal reflux disease. 4. Essential hypertension. 5. Morbid obesity body mass index of 41.7. 6. Chronic hypoxic respiratory failure on 3 liters of oxygen at home. PROCEDURE: Cardiac catheterization by Dr. Steve Ziegler with no significant disease. HOSPITAL COURSE: This patient who had repeated atrial fibrillation, some chest pressure, transferred here from [facility], underwent a cardiac catheterization showing no significant disease. The patient 2-D echocardiogram showed EF of 50 to 55%. Patient did have COPD exacerbation, that greatly improved. Patient counseled to keep off smoking. CONSULTATION: Dr. Bravo from cardiology. Dr. Higgins from pulmonary. The patient LDL was 49. DISCHARGE MEDICATIONS: 1. Cozaar 50 mg a day. 2. Zyprexa 2.5 mg p.o. daily. 3. Effexor XR 10 mg p.o. daily. 4. Lamictal 50 mg at bedtime. 5. Lamictal 100 mg b.i.d. 6. Lipitor 20 mg q.h.s. 7. Lasix 40 mg daily. 8. DuoNeb q.4 p.r.n. 9. Zaroxolyn 2.5 mg p.o. daily. 10. Nitrostat 0.4 sublingual q.5 p.r.n. 11. Zyprexa 10 mg p.o. q.h.s. 12. Xarelto 20 mg daily. 13. Desyrel 100 mg q.h.s. 14. Cordarone 200 mg p.o. t.i.d. 15. Symbicort 160/4.5, 2 puffs b.i.d. 16. Lopressor 50 mg p.o. b.i.d. Follow with Dr. Steve Ziegler on 12/25/2016, Dr. Mccoy on 12/22/2016, Dr. Higgins on 01/01/2017.
[2016-12-20] MEDS ORDERED: FUROSEMIDE 40 MG TAB PO SCH (09:00)
--- NOTE | 2017-01-13 15:01 | DS ---
DATE OF ADMISSION: 12/16/2016 DATE OF DISCHARGE: 12/19/2016 ADDENDUM: On examination, lungs decreased breath sounds, improved air entry. CARDIOVASCULAR: First and second normal. PSYCH: Alert and oriented x3. Mood and affect normal.
== END 2016-12-19 14:44 | disposition home or self-care (01) ==
LOC: EC 15:41 → 3OBS 17:36 → 6SEL 21:36
PROVIDERS: ADMIT Hospitalist; ATTEND Hospitalist
DX: I48.1 Persistent atrial fibrillation (principal); J44.1 Chronic obstructive pulmonary disease with (acute) exacerbation; K21.9 Gastro-esophageal reflux disease without esophagitis; I10 Essential (primary) hypertension; E66.01 Morbid (severe) obesity due to excess calories; Z68.41 Body mass index [BMI] 40.0-44.9, adult; E78.5 Hyperlipidemia, unspecified; F17.210 Nicotine dependence, cigarettes, uncomplicated; F31.9 Bipolar disorder, unspecified; F41.1 Generalized anxiety disorder; G47.33 Obstructive sleep apnea (adult) (pediatric); I25.10 Atherosclerotic heart disease of native coronary artery without angina pectoris; I48.2 Chronic atrial fibrillation; J45.909 Unspecified asthma, uncomplicated; J96.11 Chronic respiratory failure with hypoxia; J98.11 Atelectasis; Z79.01 Long term (current) use of anticoagulants; Z79.82 Long term (current) use of aspirin; Z91.19 Patient's noncompliance with other medical treatment and regimen; Z99.81 Dependence on supplemental oxygen
CPT/HCPCS: 94640 ×6; 94760 ×2; 93005; 93306; 93458; 80061; 80048 ×2; 82550; 82553; 84484; 85025; 71020; 99285; 96375; G0378 ×5; C1894; J2001; J2250; J2270 ×4; J1200; J1940 ×2; J2920 ×2; Q9967; J3480; J1644; 96361; 96376

== ENCOUNTER 2016-12-25 05:24 | Observation (INO) | payer OTHER ==
[2016-12-25] MEDS ORDERED: MAGNESIUM SULFATE-D5W PMX 1 GM in DEXTROSE/WATER 1 100ML.BAG IVPB ONE (05:48)
[2016-12-25] MEDS ORDERED: POTASSIUM CHLORIDE ER 20 MEQ TAB.ER PO STA (05:49)
[2016-12-25 06:09] LABS: Basophils # (A) 0.1 k/uL (0-0.2); Basophils % (A) 1 %; CHCM 32.3; Eosinophils # (A) 0.4 k/uL (0-0.7); Eosinophils % (A) 2 %; HDW 3.67; HGB 15.8 gm/dL (13.0-17.5); Hypochromasia Slight; Luc # (Auto) 0.22; Luc % (Auto) 1; Lymphocytes # (A) 3.9 k/uL (1.0-4.8); Lymphocytes % (A) 24 %; MCH 30.7 pg (25.0-35.0); MCHC 32.8 g/dL (31.0-37.0); MCV 93.4 fL (80.0-100.0); Monocytes # (A) 0.7 k/uL (0-1.0); Monocytes % (A) 4 %; Neutrophils # (A) 10.9 k/uL (1.3-7.7); Neutrophils % (A) 68 %; Poikilocytosis Slight; RBC 5.14 m/uL (4.30-5.90); WBC 16.2 k/uL (3.8-10.6); WBC (Perox) 17.27
--- NOTE | 2016-12-25 06:41 | ED ---
General Adult HPI - General Chief complaint: Chest Pain Stated complaint: Chest pain Time Seen by Provider: 12/25/16 05:45 Source: patient, EMS Mode of arrival: EMS Limitations: no limitations - History of Present Illness Initial comments: Patient is a 51-year-old man who is transferred from [facility] to be admitted as his previous cardiac care has been here. the patient had gone there earlier tonight after he developed palpitations and some substernal chest pressure. The patient had a workup there that found him in atrial fibrillation with a rate of approximately 163. He had been started on Cardizem and transferred here. On arrival, the patient's chest pain has improved but is not completely gone. -: hour(s) Location: chest Radiation: non-radiation Quality: aching Consistency: constant Improves with: none Worsens with: none Associated Symptoms: chest pain Treatments Prior to Arrival: Aspirin, other (Cardizem, oxygen) - Related Data Home Medications Medication Instructions Recorded Confirmed lamoTRIgine [LaMICtal] 50 mg PO HS 01/17/16 12/25/16 lamoTRIgine [LaMICtal] 100 mg PO BID@0700,1730 01/17/16 12/25/16 Atorvastatin [Lipitor] 20 mg PO HS 12/16/16 12/25/16 Furosemide [Lasix] 40 mg PO DAILY 12/16/16 12/25/16 Ipratropium-Albuterol Nebulize 3 ml INHALATION RT-Q4H PRN 12/16/16 12/25/16 [Duoneb 0.5 mg-3 mg/3 ml Soln] Metolazone [Zaroxolyn] 2.5 mg PO DAILY 12/16/16 12/25/16 Nitroglycerin Sl Tabs [Nitrostat] 0.4 mg SUBLINGUAL Q5M PRN 12/16/16 12/25/16 OLANZapine [ZyPREXA] 10 mg PO HS 12/16/16 12/25/16 Rivaroxaban [Xarelto] 20 mg PO DAILY 12/16/16 12/25/16 traZODone HCL [Desyrel] 100 mg PO HS 12/16/16 12/25/16 Previous Rx's Medication Instructions Recorded Losartan [Cozaar] 50 mg PO DAILY tab 07/18/15 OLANZapine [ZyPREXA] 2.5 mg PO DAILY tab 07/18/15 Venlafaxine HCl ER [Effexor XR] 300 mg PO DAILY cap.er.24h 07/18/15 Amiodarone [Cordarone] 200 mg PO TID #60 tab 12/19/16 Budesonide/Formoterol Fumarate 2 puff INHALATION BID #1 inhaler 12/19/16 [Symbicort 160-4.5 Mcg Inhaler] Metoprolol Tartrate [Lopressor] 50 mg PO BID #60 tab 12/19/16 Allergies Allergy/AdvReac Type Severity Reaction Status Date / Time No Known Allergies Allergy Verified 12/25/16 05:29 Review of Systems ROS Statement: Those systems with pertinent positive or pertinent negative responses have been documented in the HPI. ROS Other: All systems not noted in ROS Statement are negative. Constitutional: Denies: fever, chills Respiratory: Denies: cough, dyspnea Cardiovascular: Reports: as per HPI, chest pain, palpitations Gastrointestinal: Denies: abdominal pain, vomiting, diarrhea Musculoskeletal: Denies: back pain Skin: Denies: rash Neurological: Denies: headache, weakness, numbness Past Medical History Past Medical History: Atrial Fibrillation, COPD, GERD/Reflux, Hypertension, Sleep Apnea/CPAP/BIPAP Additional Past Medical History / Comment(s): Obesity, COPD, paroxysmal defibrillation, hypertension, hyperlipidemia, generalized anxiety disorder and depression, suspected obstructive sleep apnea awaiting further investigation, GE reflux, History of Any Multi-Drug Resistant Organisms: None Reported Past Surgical History: Orthopedic Surgery Additional Past Surgical History / Comment(s): 15 yrs old RT FOOT SX."KICKED A CAT FISH STINGER/BONE BROKE OFF IN HIS FOOT CAUSED INFECTION, cardiac catheterization Past Anesthesia/Blood Transfusion Reactions: No Reported Reaction Additional Past Anesthesia/Blood Transfusion Reaction / Comment(s): NEVER HAD ANY BLOOD Past Psychological History: Anxiety, Bipolar, Depression Smoking Status: Former smoker Past Alcohol Use History: None Reported Additional Past Alcohol Use History / Comment(s): STARTED SMOKING 1989, QUIT 2.5 WEEKS AGO, WAS SMOKING JUST UNDER A PACK PER DAY. He denies any medical marijuana, marijuana, street drug use currently. He denies any alcohol use. Past Drug Use History: Cocaine, Marijuana Additional Drug Use History / Comment(s): PT QUIT DRUG USE IN 2001 - Past Family History Mother Family Medical History: Cancer Additional Family Medical History / Comment(s): Mother in her 40s from breast cancer. Father Family Medical History: Coronary Artery Disease (CAD), Hypertension Additional Family Medical History / Comment(s): Father at age 71 from coronary artery disease and history of hypertension Sister(s) Family Medical History: Neurologic Disorder Additional Family Medical History / Comment(s): Patient has 5 sisters and one has depression with suicidal ideation. Patient has 3 brothers with no major medical problems. He has 4 sons that are healthy. General Exam Limitations: no limitations General appearance: alert, in no apparent distress Head exam: Present: atraumatic, normocephalic Eye exam: Present: normal appearance. Absent: scleral icterus, conjunctival injection Neck exam: Present: normal inspection Respiratory exam: Present: normal lung sounds bilaterally. Absent: respiratory distress, wheezes, rales, rhonchi, stridor Cardiovascular Exam: Present: tachycardia, irregular rhythm, normal heart sounds. Absent: systolic murmur, diastolic murmur, rubs, gallop GI/Abdominal exam: Present: soft. Absent: distended, tenderness, guarding, rebound, mass Extremities exam: Present: normal inspection, normal capillary refill. Absent: pedal edema, calf tenderness Back exam: Absent: CVA tenderness (R), CVA tenderness (L) Neurological exam: Present: alert Skin exam: Present: warm, dry, intact, normal color. Absent: rash Course Vital Signs 12/25/16 12/25/16 12/25/16 05:24 05:29 06:20 Temperature 98.5 F Pulse Rate 113 H 112 H Respiratory 20 20 22 Rate Blood Pressure 149/84 128/80 O2 Sat by Pulse 94 L 95 Oximetry 12/25/16 12/25/16 06:38 07:00 Temperature Pulse Rate 109 H 124 H Respiratory 20 20 Rate Blood Pressure 133/80 131/57 O2 Sat by Pulse 98 95 Oximetry EKG Findings - EKG Results: EKG: interpreted by ERMD, normal axis, normal QRS (Low voltage QRS) EKG shows: atrial fibrillation (Rate approximately 122 bpm) Medical Decision Making - Lab Data Result diagrams: 12/25/16 06:02 12/25/16 06:24 Lab Results 12/25/16 12/25/16 12/25/16 Range/Units 06:02 06:24 06:24 WBC 16.2 H (3.8-10.6) k/uL RBC 5.14 (4.30-5.90) m/uL Hgb 15.8 (13.0-17.5) gm/dL Hct 48.0 (39.0-53.0) % MCV 93.4 (80.0-100.0) fL MCH 30.7 (25.0-35.0) pg MCHC 32.8 (31.0-37.0) g/dL RDW 15.0 (11.5-15.5) % Plt Count 268 (150-450) k/uL Neutrophils % 68 % Lymphocytes % 24 % Monocytes % 4 % Eosinophils % 2 % Basophils % 1 % Neutrophils # 10.9 H (1.3-7.7) k/uL Lymphocytes # 3.9 (1.0-4.8) k/uL Monocytes # 0.7 (0-1.0) k/uL Eosinophils # 0.4 (0-0.7) k/uL Basophils # 0.1 (0-0.2) k/uL Hypochromasia Slight Poikilocytosis Slight Sodium 140 (137-145) mmol/L Potassium 4.4 (3.5-5.1) mmol/L Chloride 99 (98-107) mmol/L Carbon Dioxide 30 (22-30) mmol/L Anion Gap 11 mmol/L BUN 11 (9-20) mg/dL Creatinine 0.94 (0.66-1.25) mg/dL Est GFR (MDRD) Af Amer >60 (>60 ml/min/1.73 sqM) Est GFR (MDRD) Non-Af >60 (>60 ml/min/1.73 sqM) Glucose 139 H (74-99) mg/dL Calcium 9.4 (8.4-10.2) mg/dL Troponin I <0.012 (0.000-0.034) ng/mL Disposition Clinical Impression: Atrial fibrillation, Chest pain Disposition: ADMITTED IP TO THIS HOSP Condition: Fair
[2016-12-25] MEDS: NITROGLYCERIN SL TABS 0.4 MG TAB SUBLINGUAL PRN ×2 (06:48→07:00)
[2016-12-25 06:49] LABS: Anion Gap 11 mmol/L; Blood Urea Nitrogen 11 mg/dL (9-20); Calcium 9.4 mg/dL (8.4-10.2); Carbon Dioxide 30 mmol/L (22-30); Chloride 99 mmol/L (98-107); Glucose 139 mg/dL (74-99); Non-African American GFR(MDRD) >60 (>60 ml/min/1.73 sqM); Sodium 140 mmol/L (137-145)
[2016-12-25 06:50] LABS: Potassium 4.4 mmol/L (3.5-5.1)
[2016-12-25] MEDS ORDERED: DILTIAZEM 125 MG in SODIUM CHLORIDE 0.9% 100 ML IV SCH (07:15)
[2016-12-25] MEDS ORDERED: MORPHINE SULFATE 2 MG/ML SYRINGE IVP PRN (07:24)
[2016-12-25 07:25] LABS: Creatine Kinase MB 0.6 ng/mL (0.0-2.4)
[2016-12-25 09:33] VITALS: RESP 20
[2016-12-25] MEDS ORDERED: IPRATROPIUM-ALBUTEROL 3 ML NEB INHALATION PRN (10:22)
--- NOTE | 2016-12-25 10:37 | P.CRDCN ---
History of Present Illness Consult date: 12/25/16 Requesting physician: Frank Howard Consult reason: atrial fibrillation Chief complaint: Palpitations, lightheadedness and dizziness History of present illness: This is a 51-year-old gentleman who we recently discharged home from the hospital. He was recently in the hospital with atrial fibrillation as well as underwent a cardiac catheterization which did not reveal any significant disease. His echo which was performed a couple weeks ago revealed an ejection fraction of 50-55%. Patient has history of sleep apnea, COPD, asthma, hypertension, morbid obesity, hyperlipidemia, nicotine use, anxiety and depression, as well as paroxysmal atrial fibrillation. He presented to [facility] with symptoms of palpitations and associated dizziness and lightheadedness, was back in atrial fibrillation with rapid ventricular response and was transferred here to [place]. Prescriptions for all of his new medications but states he did not yet get them filled. EKG on arrival here showed atrial fibrillation with a rapid ventricular response, patient was initiated on IV Cardizem. The pressure on arrival here 132/80 with a heart rate of 120, 95% on 3 L of oxygen. White blood cell count 16.2, hemoglobin 15.8 , potassium 4.4, BUN 11, creatinine 0.9. Troponin 0.012. At the time of my examination, patient is complaining of sharp pain when he takes a deep breath. Past Medical History Past Medical History: Atrial Fibrillation, COPD, GERD/Reflux, Hyperlipidemia, Hypertension, Sleep Apnea/CPAP/BIPAP Additional Past Medical History / Comment(s): Pt recently admitted 12/16/16 with AFib and chest pain. Cardiac cath done, EF 50-55%. Other hx: Obesity, paroxysmal defibrillation, suspected obstructive sleep apnea awaiting sleep study test 12/27/16, respiratory failure with home O2 at 3L/NC ATC. History of Any Multi-Drug Resistant Organisms: None Reported Past Surgical History: Heart Catheterization, Orthopedic Surgery Additional Past Surgical History / Comment(s): RT FOOT SX : "KICKED A CAT FISH STINGER/BONE BROKE OFF IN HIS FOOT CAUSED INFECTION, 11/2016 cardiac catheterization Past Anesthesia/Blood Transfusion Reactions: No Reported Reaction Additional Past Anesthesia/Blood Transfusion Reaction / Comment(s): NEVER HAD ANY BLOOD Past Psychological History: Anxiety, Bipolar, Depression Additional Psychological History / Comment(s): Pt resides with his girlfriend. He has home O2 at 3L/NC ATC. He has a nebulizer. He uses no assistive device. He drives. He lives in a single story home with no stairs. Smoking Status: Former smoker Past Alcohol Use History: None Reported Additional Past Alcohol Use History / Comment(s): STARTED SMOKING 1989, QUIT 3 WEEKS AGO, WAS SMOKING JUST UNDER A PACK PER DAY. He denies any medical marijuana, marijuana, street drug use currently. He denies any alcohol use. Past Drug Use History: Cocaine, Marijuana Additional Drug Use History / Comment(s): PT QUIT DRUG USE IN 2001 - Past Family History Mother Family Medical History: Cancer Additional Family Medical History / Comment(s): Mother in her 40s from breast cancer. Father Family Medical History: Coronary Artery Disease (CAD), Hypertension Additional Family Medical History / Comment(s): Father at age 71 from coronary artery disease and history of hypertension Sister(s) Family Medical History: Neurologic Disorder Additional Family Medical History / Comment(s): Patient has 5 sisters and one has depression with suicidal ideation. Patient has 3 brothers with no major medical problems. He has 4 sons that are healthy. Medications and Allergies Home Medications Medication Instructions Recorded Confirmed Type lamoTRIgine [LaMICtal] 50 mg PO HS 01/17/16 12/25/16 History lamoTRIgine [LaMICtal] 100 mg PO BID@0700,1730 01/17/16 12/25/16 History Atorvastatin [Lipitor] 20 mg PO HS 12/16/16 12/25/16 History Furosemide [Lasix] 40 mg PO DAILY 12/16/16 12/25/16 History Ipratropium-Albuterol Nebulize 3 ml INHALATION RT-Q4H PRN 12/16/16 12/25/16 History [Duoneb 0.5 mg-3 mg/3 ml Soln] Metolazone [Zaroxolyn] 2.5 mg PO DAILY 12/16/16 12/25/16 History Nitroglycerin Sl Tabs [Nitrostat] 0.4 mg SUBLINGUAL Q5M PRN 12/16/16 12/25/16 History Rivaroxaban [Xarelto] 20 mg PO DAILY 12/16/16 12/25/16 History traZODone HCL [Desyrel] 100 mg PO HS 12/16/16 12/25/16 History Apixaban [Eliquis] 5 mg PO BID 12/25/16 12/25/16 History Diltiazem Cd [Cardizem Cd] 180 mg PO DAILY 12/25/16 12/25/16 History OLANZapine [ZyPREXA] 15 mg PO HS 12/25/16 12/25/16 History Spironolactone [Aldactone] 25 mg PO DAILY 12/25/16 12/25/16 History Allergies Allergy/AdvReac Type Severity Reaction Status Date / Time No Known Allergies Allergy Verified 12/25/16 07:39 Physical Exam Vitals: Vital Signs Temp Pulse Pulse Resp BP BP Pulse Ox 12/25/16 09:32 96.2 F L 100 20 134/91 94 L 12/25/16 08:41 98 18 118/63 94 L 12/25/16 07:57 119 H 18 118/83 95 12/25/16 07:00 124 H 20 131/57 95 Intake and Output 12/24/16 12/25/16 12/25/16 22:59 06:59 14:59 Intake Total 160 Balance 160 Intake: IV 10 Diltiazem 125 mg In 10 Sodium Chloride 0.9% 100 ml @ 5 MG/HR 5 mls/hr IV .Q24H [facility] Rx#:[id number] Oral 150 Other: # Voids 0 # Bowel Movements 0 Weight 114.759 kg Patient Weight 12/26/16 06:59 Weight 114.759 kg PHYSICAL EXAMINATION: HEENT: Head is atraumatic, normocephalic. Pupils equal, round. Neck is supple. There is no elevated jugular venous pressure. HEART EXAMINATION: S1 and S2 irregular irregular CHEST EXAMINATION: And's reveal fine wheezing throughout. ABDOMEN: Soft, obese, nontender. Bowel sounds are heard. No organomegaly noted. EXTREMITIES: 1+ peripheral pulses with 1+ no evidence of peripheral edema and no calf tenderness noted. NEUROLOGIC patient is awake, alert and oriented -3. . Results 12/25/16 06:02 12/25/16 06:24 Cardiac Enzymes 12/25/16 Range/Units 06:45 CK-MB (CK-2) 0.6 (0.0-2.4) ng/mL Current Medications Generic Name Dose Route Start Last Admin Trade Name Freq PRN Reason Stop Dose Admin Aspirin 325 mg 12/26/16 09:00 Aspirin PO DAILY BALA Diltiazem HCl 125 mg/ Sodium 125 mls @ 5 mls/hr 12/25/16 07:15 12/25/16 10:11 Chloride IV 5 mg/hr .Q24H BALA 5 mls/hr Protocol Administration 5 MG/HR Morphine Sulfate 2 mg 12/25/16 07:24 12/25/16 07:24 Morphine Sulfate (Inj) IVP 2 mg ONCE PRN Administration Pain/Discomfort Nitroglycerin 0.4 mg 12/25/16 06:38 12/25/16 07:00 Nitrostat SUBLINGUAL 0.4 mg Q5M PRN Administration Chest Pain Intake and Output 12/24/16 12/25/16 12/25/16 22:59 06:59 14:59 Intake Total 160 Balance 160 Intake: IV 10 Diltiazem 125 mg In 10 Sodium Chloride 0.9% 100 ml @ 5 MG/HR 5 mls/hr IV .Q24H [facility] Rx#:[id number] Oral 150 Other: # Voids 0 # Bowel Movements 0 Weight 114.759 kg Patient Weight 12/26/16 06:59 Weight 114.759 kg EKG Interpretations (text) EKG shows atrial fibrillation with rapid ventricular response Assessment and Plan Plan: Assessment and plan #1 atrial fibrillation with rapid ventricular response in a patient with paroxysmal atrial fibrillation. #2 hypertension #3 obesity #4 recent cardiac catheterization performed 2 weeks ago did not reveal any significant obstructive coronary artery disease #5 nicotine dependence #6 asthma #7 hyperlipidemia Plan We'll put the patient back on xarelto 20 mg one tablet daily, resume Lipitor, resume Cozaar, Zaroxolyn, Lopressor 50 mg one tablet by mouth twice a day, patient has been advised regarding the importance of getting his prescriptions filled and taking his medications. Discontinue Cardizem drip. He may be able to be discharged home from cardiology's perspective this afternoon, and follow- up with Dr. Jack Ziegler in the office DNP note has been reviewed, I agree with a documented findings and plan of care. Patient was seen and examined.
[2016-12-25] MEDS: AMIODARONE 200 MG TAB PO SCH ×2 (11:17→16:22)
[2016-12-25] MEDS ORDERED: APIXABAN 5 MG TAB PO SCH (12:30)
[2016-12-25] MEDS ORDERED: VENLAFAXINE HCL ER 150 MG CAP PO SCH (13:00)
[2016-12-25] MEDS ORDERED: lamoTRIgine 100 MG TAB PO SCH (13:00)
[2016-12-25] MEDS ORDERED: OLANZapine 2.5 MG TAB PO SCH (13:00)
[2016-12-25 13:13] LABS: Creatine Kinase 34 U/L (55-170)
[2016-12-25 13:24] LABS: Creatine Kinase MB 0.7 ng/mL (0.0-2.4); Troponin I <0.012 ng/mL (0.000-0.034)
[2016-12-25] MEDS ORDERED: METOPROLOL TARTRATE 50 MG TAB PO ONE (14:45)
--- NOTE | 2016-12-25 15:58 | HP ---
DATE OF ADMISSION: 12/25/2016 PRESENTING COMPLAINT: Heart racing. HISTORY OF PRESENTING COMPLAINT: This is a 51-year-old patient I saw earlier this morning. Patient has an extensive medical history, including atrial fibrillation; also has COPD, GERD, hypertension, chronic hypoxic respiratory failure, on 3 L of oxygen at home. Patient was here in the third week of November of this year, underwent a cardiac catheterization that did not show any significant disease. Two-D echo showed an EF of 50% to 55%. Patient states he has been taking his medication. He came in through the ER, transferred from [facility]; he was having some chest pressure and palpitations. Apparently at [facility] his heart rate had gone up to 163 and he was put on Cardizem and transferred here. While walking here, patient's heart rate has been actually about 100 to 110 with walking. REVIEW OF SYSTEMS: CONSTITUTIONAL: Tired. HEENT: None. RESPIRATORY: As above. CARDIOVASCULAR: Heart racing. GASTROINTESTINAL: None. GENITOURINARY: None. MUSCULOSKELETAL: Pain in the joints. DERMATOLOGICAL: None. HEMATOLOGICAL: None. LYMPHATIC: None. PSYCHIATRY: None. NEUROLOGICAL: None. PAST MEDICAL HISTORY: 1. Atrial fibrillation. 2. COPD. 3. GERD. 4. Hypertension. 5. Sleep apnea ( ) place. 6. Emphysema. On home oxygen at 3 liters. PAST SURGICAL HISTORY: Right foot surgery. SOCIAL HISTORY: Patient smoked for 27 years; stopped smoking 3 weeks ago. In 2001 patient stopped doing cocaine, marijuana, crack, alcohol. Lives with his girlfriend. Patient is on disability. FAMILY HISTORY: Mother had breast cancer in her 40s and from the same. HOME MEDICATIONS: 1. Desyrel 100 mg at bedtime. 2. Lamictal 50 mg p.o. at bedtime. 3. Lamictal 100 mg p.o. b.i.d. 4. Effexor XR 300 mg p.o. daily. 5. Aldactone 25 mg p.o. daily. 6. Xarelto 20 mg p.o. daily. 7. Zyprexa 2.5 mg p.o. daily. 8. Zyprexa 50 mg p.o. at bedtime. 9. Nitrostat 0.4 sublingually q.5 p.r.n. 10. Lopressor 50 mg p.o. b.i.d. 11. Zaroxolyn 2.5 mg p.o. daily. 12. Cozaar 50 mg p.o. daily. 13. DuoNeb q.4 p.r.n. 14. Lasix 40 mg daily. 15. Cardizem CD 180 mg daily. 16. Symbicort 160/4.5 two puffs b.i.d. 17. Lipitor 20 mg at bedtime. 18. Eliquis 5 mg p.o. b.i.d. I need to clarify the home medications. PHYSICAL EXAMINATION: VITAL SIGNS ON PRESENTATION: Temperature 98.5, pulse 103, respiration 20, blood pressure 149/84, pulse ox 94% on 2 L. GENERAL APPEARANCE: Well built; BMI of 40.8. Lying in bed. Tired-appearing. EYES: Pupils equal. Conjunctivae normal. HEENT: Oral cavity normal. NECK: JVD not raised. Mass not palpable. RESPIRATORY: Effort normal. LUNGS: Diminished breath sounds. CARDIOVASCULAR: Heart sounds irregular. No edema. ABDOMEN: Soft, non-tender. Liver and spleen not palpable. LYMPHATIC: No lymph node palpable in neck or axillae. PSYCHIATRY: Alert and oriented x3. Mood and affect normal. NEUROLOGICAL: Pupils equal. Cranial nerves grossly intact. Power and sensation grossly intact. INVESTIGATIONS: White count 16.2, hemoglobin 15.8, potassium 4.4. BUN and creatinine are normal. Troponin negative. EKG: Atrial fibrillation, rate up to 122. ASSESSMENT: 1. Persistent atrial fibrillation, rate uncontrolled, hovering around 122. 2. Recent cardiac catheterization showing normal coronaries. 3. Chronic obstructive pulmonary disease in an ex-smoker. 4. Gastroesophageal reflux disease. 5. Essential hypertension. 6. Morbid obesity; body mass index greater than 40. 7. Chronic hypoxic respiratory failure, on 3 liters of oxygen at home. 8. Bipolar disorder, controlled. PLAN: Home medications are resumed. Cardiology was consulted. Will clarify patient's home blood thinner. Patient's echocardiogram from last month showed EF preserved at 50% to 55%.
[2016-12-25] MEDS ORDERED: RIVAROXABAN 10 MG TAB PO SCH (17:30)
[2016-12-25 17:52] VITALS: BP 132/78; PULSE 88; TEMP 98.8
[2016-12-25] MEDS ORDERED: SYMBICORT 160-4.5 MCG INHALER INHALATION SCH (20:00)
[2016-12-25] MEDS ORDERED: METOPROLOL TARTRATE 50 MG TAB PO SCH (21:00)
[2016-12-25] MEDS ORDERED: lamoTRIgine 25 MG TAB PO SCH (21:00)
[2016-12-25] MEDS ORDERED: ATORVASTATIN 20 MG TAB PO SCH (21:00)
[2016-12-25] MEDS ORDERED: OLANZapine 5 MG TAB PO SCH (21:00)
[2016-12-26] MEDS ORDERED: LOSARTAN 50 MG TAB PO SCH (09:00)
[2016-12-26] MEDS ORDERED: FUROSEMIDE 40 MG TAB PO SCH (09:00)
[2016-12-26] MEDS ORDERED: DILTIAZEM CD 180 MG CAP.ER.24H PO SCH (09:00)
[2016-12-26] MEDS ORDERED: METOLAZONE 2.5 MG TAB PO SCH (09:00)
[2016-12-26] MEDS ORDERED: ASPIRIN 325 MG TAB PO SCH (09:00)
--- NOTE | 2016-12-26 10:10 | DS ---
DATE OF ADMISSION: 12/25/2016 DATE OF DISCHARGE: 12/25/2016 FINAL DIAGNOSES: 1. Paroxysmal atrial fibrillation with rate uncontrolled. 2. Recent cardiac catheterization showing normal coronaries. 3. Chronic obstructive pulmonary disease in an ex-smoker. 4. Gastroesophageal reflux disease. 5. Essential hypertension. 6. Morbid obesity, body mass index of 40. 7. Chronic hypoxic respiratory failure, on 3L oxygen at home. 8. Bipolar disorder, controlled. Consulted Dr. Bravo from cardiology. HOSPITAL COURSE: This patient presented with palpations, chest pressure, seen by Dr. Bravo. Patient is to go back on Xarelto. He had not filled some of his medications. Rate was better controlled at the time of discharge. DISCHARGE MEDICATIONS: 1. Cozaar 50 mg a day. 2. Zyprexa 2.5 mg a day. 3. Effexor XL 300 mg a day. 4. Lamictal 400 mg p.o. q.h.s. 5. Lamictal 100 mg p.o. b.i.d. 6. Lipitor 20 mg q.h.s. 7. Lasix 40 mg daily. 8. Atrovent updraft q.4 p.r.n. 9. Zaroxolyn 2.5 mg daily. 10. Nitrostat 0.4 sublingual q.5 p.r.n. 11. Trazodone 100 mg q.h.s. 12. Symbicort 160/4.5, 2 puffs twice a day. 13. Lopressor 50 mg p.o. b.i.d. 14. Cardizem CD 180 mg a day. 15. Zyprexa 15 mg p.o. q.h.s. 16. Xarelto 20 mg p.o. before supper. 17. Aldactone 25 mg a day. Follow up with Dr. Steve Ziegler in 1 week. Follow up with Dr. Matt Mccoy in 3 days. On exam, LUNGS: Decreased breath sounds. CARDIOVASCULAR: Heart sounds irregular. PSYCH: Alert and oriented x3. Mood and affect normal.
== END 2016-12-25 19:13 | disposition home health service (06) ==
LOC: EC 05:24 → INTOOBSV 06:38 → 6SEL 06:38
PROVIDERS: ADMIT Hospitalist; ATTEND Hospitalist
DX: I48.0 Paroxysmal atrial fibrillation (principal); J96.11 Chronic respiratory failure with hypoxia; Z99.81 Dependence on supplemental oxygen; E66.01 Morbid (severe) obesity due to excess calories; I10 Essential (primary) hypertension; I48.1 Persistent atrial fibrillation; E78.5 Hyperlipidemia, unspecified; F17.200 Nicotine dependence, unspecified, uncomplicated; F31.9 Bipolar disorder, unspecified; F41.1 Generalized anxiety disorder; G47.30 Sleep apnea, unspecified; J44.9 Chronic obstructive pulmonary disease, unspecified; J45.909 Unspecified asthma, uncomplicated; K21.9 Gastro-esophageal reflux disease without esophagitis; Z68.41 Body mass index [BMI] 40.0-44.9, adult; Z79.01 Long term (current) use of anticoagulants; Z79.899 Other long term (current) drug therapy; Z82.49 Family history of ischemic heart disease and other diseases of the circulatory system; Z91.14 Patient's other noncompliance with medication regimen
CPT/HCPCS: 96365; 96375; 99285; 36415; 94640; 93005; 80048; 82550; 82553; 84484; 85025; G0378; J2270; J3475

== ENCOUNTER 2018-10-07 10:50 | Observation (INO) | payer OTHER ==
[2018-10-07] MEDS ORDERED: ACETAMINOPHEN TAB 325 MG TAB PO PRN (12:49)
[2018-10-07] MEDS ORDERED: NALOXONE 0.4 MG/ML 1 ML VIAL IV PRN (12:49)
[2018-10-07] MEDS: HYDROcodone/APAP 5-325MG 1 EACH TAB PO PRN ×2 (14:22→18:18)
[2018-10-07 14:42] LABS: Basophils # (A) 0.1 k/uL (0-0.2); Basophils % (A) 1 %; Eosinophils # (A) 0.1 k/uL (0-0.7); Eosinophils % (A) 1 %; HCT 54.2 % (39.0-53.0); HGB 17.6 gm/dL (13.0-17.5); Lymphocytes # (A) 0.9 k/uL (1.0-4.8); Lymphocytes % (A) 13 %; MCH 30.1 pg (25.0-35.0); MCHC 32.5 g/dL (31.0-37.0); MCV 92.6 fL (80.0-100.0); Mean Platelet Volume 7.3; Monocytes # (A) 0.1 k/uL (0-1.0); Monocytes % (A) 2 %; Neutrophils # (A) 5.6 k/uL (1.3-7.7); Neutrophils % (A) 83 %; Platelet Count 289 k/uL (150-450); RBC 5.85 m/uL (4.30-5.90); RDW 13.1 % (11.5-15.5); WBC 6.7 k/uL (3.8-10.6)
[2018-10-07 14:53] LABS: ALT 28 U/L (21-72); AST 16 U/L (17-59); Albumin 4.7 g/dL (3.5-5.0); Alkaline Phosphatase 71 U/L (38-126); Anion Gap 10 mmol/L; Blood Urea Nitrogen 11 mg/dL (9-20); Calcium 10.1 mg/dL (8.4-10.2); Carbon Dioxide 31 mmol/L (22-30); Chloride 100 mmol/L (98-107); Glucose 140 mg/dL (74-99); Potassium 4.7 mmol/L (3.5-5.1); Sodium 141 mmol/L (137-145); Total Bilirubin 0.4 mg/dL (0.2-1.3); Total Protein 7.2 g/dL (6.3-8.2)
[2018-10-07] MEDS ORDERED: IPRATROPIUM-ALBUTEROL 3 ML NEB INHALATION PRN (15:00)
[2018-10-07] MEDS ORDERED: NITROGLYCERIN SL TABS 0.4 MG TAB SUBLINGUAL PRN (15:00)
[2018-10-07 15:08] LABS: Creatine Kinase 32 U/L (55-170)
--- NOTE | 2018-10-07 15:18 | P.CRDCN ---
History of Present Illness History of present illness: This is a pleasant 53-year-old male past medical history significant for paroxysmal atrial fibrillation, COPD, hypertension, dyslipidemia and obstructive sleep apnea. He follows with Dr. ALEJANDRA Ziegler in the office. We have been asked to see him in consultation for chest pain. He states he was lifting a box and while he was lifting a box and setting it down he started feeling a sharp burning sensation in the midsternal region. The pain was very acute with onset. He denies radiation to the back, arm, neck or jaw. He states he has chronic shortness of breath but noticed no increased at the time of his pain. He denies palpitations, dizziness, diaphoresis, nausea or vomiting. He states he does feel his heart fluttering from time to time, he has a known history of paroxysmal A. fib. He states he is supposed to be on warfarin although he doesn 't like the idea of going to get his blood current regularly as well as as he feels as though he is asked him prone and is constantly cutting himself and does not want to have an issue with bleeding. Therefore he does not take his anticoagulation as recommended. Immediately after feeling the chest discomfort he took 2 sublingual nitroglycerin without much relief. EMS was called and he was transported her for discharge hospital. He was given 2 more nitroglycerin by EMS which seemed to go the intensive pain. In all his symptoms persisted for approximately 15 minutes. He has had no further symptoms of chest discomfort since arriving at the hospital. There is no reproducible pain in the chest and is not worse with deep inspiration or cough. EKG obtained at [facility] reveals sinus mechanism with no acute ST or T-wave abnormalities. Laboratory data reviewed, WBC 6.7, hemoglobin 17.6, platelets 289, sodium 141, potassium 4.7, creatinine 0.95, cardiac enzymes negative 2 at [facility], third set here is currently pending. Most recent cardiac catheterization performed November 2016 reveals no significant obstructive coronary artery disease with slightly elevated filling pressures and mild global decrease in contractility with an ejection fraction of 45%. Current cardiac medications noted from the office at last visit 06/2018 include verapamil 240 mg daily, Lopressor 25 mg 3 times a day, losartan 25 mg daily, Lipitor 20 mg daily and diltiazem 180 mg daily. At the time of my exam: CONSTITUTIONAL: Denies fever. Denies chills. EYES: Denies blurred vision. Denies vision changes. Denies eye pain. EARS, NOSE, MOUTH & THROAT: Denies headache. Denies sore throat. Denies ear pain. CARDIOVASCULAR: Denies chest pain. Complains of shortness of breath. Denies orthopnea. Denies PND. Denies palpitations. RESPIRATORY: Denies cough. GASTROINTESTINAL: Denies abdominal pain. Denies diarrhea. Denies constipation. Denies nausea. Denies vomiting. MUSCULOSKELETAL: Denies myalgias. INTEGUMENTARY: Denies pruitis. Denies rash. NEUROLOGIC: Denies numbness. Denies tingling. Denies weakness. PSYCHIATRIC: Denies anxiety. Denies depression. ENDOCRINE: Denies fatigue. Denies weight change. Denies polydipsia. Denies polyurina. GENITOURINARY: Denies burning, hematuria or urgency with micturation. HEMATOLOGIC: Denies history of anemia. Denies bleeding. Blood pressure 134/86 heart rate 70 afebrile maintaining oxygen saturation on room air GENERAL: This is a 53-year-old male in no apparent distress at the time of my examination. Obese. HEENT: Head is atraumatic, normocephalic. Pupils are equal, round. Sclerae anicteric. Conjunctivae are clear. Mucous membranes of the mouth are moist. Neck is supple. There is no jugular venous distention. No carotid bruit is heard. LUNGS: Inspiratory and expiratory wheezes noted throughout. No rales or rhonchi. No chest wall tenderness is noted on palpation or with deep breathing. HEART: Regular rate and rhythm with systolic ejection murmur at the base, no rubs or gallops. S1 and S2 heard. ABDOMEN: Soft, nontender. Bowel sounds are heard. No organomegaly noted. EXTREMITIES: No evidence of peripheral edema and no calf tenderness noted. VASCULAR: Radial and dorsalis pedis pulses palpated, no evidence of clubbing. NEUROLOGIC: Patient is awake, alert and oriented x3. ASSESSMENT Chest pain, atypical for angina. Normal cardiac catheterization November 2016 no evidence of obstructive CAD. Paroxysmal atrial fibrillation, noncompliant with long-term anticoagulation. Currently maintaining sinus mechanism. Hypertension Dyslipidemia COPD Obstructive sleep apnea Chronic nicotine dependence Former substance abuse in the form of cocaine, marijuana and crack cocaine. History of non-compliance PLAN Continue to obtain serial enzymes to rule out an acute coronary event. Obtain 2-D echocardiogram and Doppler study to assess cardiac structure and function. Smoking cessation and lifestyle modifications highly recommended. Medication compliance discussed and recommended. No further workup in the form of stress test or cardiac catheterization since he has had a normal cath less than 2 years ago. Thank you kindly for this consultation. Nurse Practitioner note has been reviewed, I agree with a documented findings and plan of care. Patient was seen and examined. Past Medical History Past Medical History: Atrial Fibrillation, COPD, GERD/Reflux, Hypertension, Respiratory Disorder, Sleep Apnea/CPAP/BIPAP Additional Past Medical History / Comment(s): Obesity, paroxysmal defibrillation, chronic respiratory failure with home O2 at 3L/NC ATC, [place] but does not tolerate CPap, pt denies hyperlipidemia (takes lipitor), chronic low back pain/bulging discs. History of Any Multi-Drug Resistant Organisms: None Reported Past Surgical History: Heart Catheterization, Orthopedic Surgery Additional Past Surgical History / Comment(s): RT FOOT SX : "KICKED A CAT FISH STINGER/BONE BROKE OFF IN HIS FOOT CAUSED INFECTION, 11/2016 cardiac catheterization-normal, colonoscopy-normal. Past Anesthesia/Blood Transfusion Reactions: No Reported Reaction Additional Past Anesthesia/Blood Transfusion Reaction / Comment(s): NEVER RECEIVED BLOOD Smoking Status: Light tobacco smoker - Past Family History Mother Family Medical History: Cancer Additional Family Medical History / Comment(s): Mother in her 40s from breast cancer. Father Family Medical History: Coronary Artery Disease (CAD), Hypertension Additional Family Medical History / Comment(s): Father at age 71 from coronary artery disease and history of hypertension Sister(s) Family Medical History: Neurologic Disorder Additional Family Medical History / Comment(s): Patient has 5 sisters and one has depression with suicidal ideation. Patient has 3 brothers with no major medical problems. He has 4 sons that are healthy. Medications and Allergies Home Medications Medication Instructions Recorded Confirmed Type Losartan [Cozaar] 50 mg PO DAILY tab 07/18/15 12/25/16 Rx OLANZapine [ZyPREXA] 2.5 mg PO DAILY tab 07/18/15 12/25/16 Rx Venlafaxine HCl ER [Effexor XR] 300 mg PO DAILY cap.er.24h 07/18/15 12/25/16 Rx lamoTRIgine [LaMICtal] 50 mg PO HS 01/17/16 12/25/16 History lamoTRIgine [LaMICtal] 100 mg PO BID@0700,1730 01/17/16 12/25/16 History Atorvastatin [Lipitor] 20 mg PO HS 12/16/16 12/25/16 History Furosemide [Lasix] 40 mg PO DAILY 12/16/16 12/25/16 History Ipratropium-Albuterol Nebulize 3 ml INHALATION RT-Q4H PRN 12/16/16 12/25/16 History [Duoneb 0.5 mg-3 mg/3 ml Soln] Metolazone [Zaroxolyn] 2.5 mg PO DAILY 12/16/16 12/25/16 History Nitroglycerin Sl Tabs [Nitrostat] 0.4 mg SUBLINGUAL Q5M PRN 12/16/16 12/25/16 History traZODone HCL [Desyrel] 100 mg PO HS 12/16/16 12/25/16 History Budesonide/Formoterol Fumarate 2 puff INHALATION BID #1 inhaler 12/19/16 Rx [Symbicort 160-4.5 Mcg Inhaler] Metoprolol Tartrate [Lopressor] 50 mg PO BID #60 tab 12/19/16 12/25/16 Rx Diltiazem Cd [Cardizem CD] 180 mg PO DAILY 12/25/16 12/25/16 History OLANZapine [ZyPREXA] 15 mg PO HS 12/25/16 12/25/16 History Rivaroxaban [Xarelto] 20 mg PO AC-SUPPER #0 12/25/16 12/25/16 Rx Spironolactone [Aldactone] 25 mg PO DAILY 12/25/16 12/25/16 History Allergies Allergy/AdvReac Type Severity Reaction Status Date / Time No Known Allergies Allergy Verified 12/25/16 07:39 Physical Exam Vitals: Vital Signs Temp Pulse Resp BP Pulse Ox 10/07/18 12:40 98.5 F 70 18 134/86 96 Intake and Output 10/06/18 10/07/18 10/07/18 22:59 06:59 14:59 Other: Voiding Method Toilet Weight 108.7 kg Results 10/07/18 14:17 10/07/18 14:17 Cardiac Enzymes 10/07/18 Range/Units 14:17 AST 16 L (17-59) U/L CBC 10/07/18 Range/Units 14:17 WBC 6.7 (3.8-10.6) k/uL RBC 5.85 (4.30-5.90) m/uL Hgb 17.6 H (13.0-17.5) gm/dL Hct 54.2 H (39.0-53.0) % Plt Count 289 (150-450) k/uL Comprehensive Metabolic Panel 10/07/18 Range/Units 14:17 Sodium 141 (137-145) mmol/L Potassium 4.7 (3.5-5.1) mmol/L Chloride 100 (98-107) mmol/L Carbon Dioxide 31 H (22-30) mmol/L BUN 11 (9-20) mg/dL Creatinine 0.95 (0.66-1.25) mg/dL Glucose 140 H (74-99) mg/dL Calcium 10.1 (8.4-10.2) mg/dL AST 16 L (17-59) U/L ALT 28 (21-72) U/L Alkaline Phosphatase 71 (38-126) U/L Total Protein 7.2 (6.3-8.2) g/dL Albumin 4.7 (3.5-5.0) g/dL Current Medications Generic Name Dose Route Start Last Admin Trade Name Freq PRN Reason Stop Dose Admin Acetaminophen 650 mg 10/07/18 12:49 Tylenol Tab PO Q6HR PRN Mild Pain or Fever > 100.5 Hydrocodone Bitart/Acetaminophen 1 each 10/07/18 12:49 10/07/18 14:22 [place] 5-325 PO 1 each Q4HR PRN Administration Moderate Pain Morphine Sulfate 2 mg 10/07/18 12:49 Morphine Sulfate (Inj) IV Q4HR PRN Severe Pain Naloxone HCl 0.2 mg 10/07/18 12:49 Narcan IV Q2M PRN Opioid Reversal Intake and Output 10/06/18 10/07/18 10/07/18 22:59 06:59 14:59 Other: Voiding Method Toilet Weight 108.7 kg Patient Weight 10/08/18 06:59 Weight 108.7 kg 10/07/18 14:17 10/07/18 14:17
[2018-10-07 15:21] LABS: Creatine Kinase MB 0.6 ng/mL (0.0-2.4); Troponin I <0.012 ng/mL (0.000-0.034)
--- NOTE | 2018-10-07 15:24 | P.HPIM ---
History of Present Illness H&P Date: 10/07/18 Chief Complaint: chest pain 53-year-old male with PMH of CHF, COPD, hypertension, bipolar disorder and atrial fibrillation presents the ED for chest pain. He is a transfer from [facility], learning technologist is Dr. Ziegler. Patient reports waking up at 4 AM this morning. Patient reports chest pain as he was cleaning dishes. Pain is located in the left side of the chest. Pain is 8 out of 10 in severity. Pain is pressure-like in sensation. Pain radiates to left arm and is associated with left arm numbness. Patient reports taking 2 nitro pills which did not help. There are no changes with movement or with deep inspiration. Patient is unable to describe his exercise tolerance as he is usually bedridden. He denies any PND or orthopnea. Of note, patient underwent cardiac catheterization in November 2016, results showed no significant obstruction. Of note, patient reports smoking 5-6 cigarettes a day for the past 30 years. He denies any previous history of DC or CVA. No early family history of DC. He denies any headaches, lower extremity edema, nausea, vomiting, fever, cough, palpitations, changes in urination or bowel habits. No changes in appetite or weight. He is admitted for unstable angina, rule out acute coronary syndrome. Cardiology on consult. Review of Systems All systems: negative Past Medical History Past Medical History: Atrial Fibrillation, COPD, GERD/Reflux, Hypertension, Respiratory Disorder, Sleep Apnea/CPAP/BIPAP Additional Past Medical History / Comment(s): Obesity, paroxysmal defibrillation, chronic respiratory failure with home O2 at 3L/[place] ATC, [place] but does not tolerate CPap, pt denies hyperlipidemia (takes lipitor), chronic low back pain/bulging discs. History of Any Multi-Drug Resistant Organisms: None Reported Past Surgical History: Heart Catheterization, Orthopedic Surgery Additional Past Surgical History / Comment(s): RT FOOT SX : "KICKED A CAT FISH STINGER/BONE BROKE OFF IN HIS FOOT CAUSED INFECTION, 11/2016 cardiac catheterization-normal, colonoscopy-normal. Past Anesthesia/Blood Transfusion Reactions: No Reported Reaction Additional Past Anesthesia/Blood Transfusion Reaction / Comment(s): NEVER RECEIVED BLOOD Smoking Status: Light tobacco smoker - Past Family History Mother Family Medical History: Cancer Additional Family Medical History / Comment(s): Mother in her 40s from breast cancer. Father Family Medical History: Coronary Artery Disease (CAD), Hypertension Additional Family Medical History / Comment(s): Father at age 71 from coronary artery disease and history of hypertension Sister(s) Family Medical History: Neurologic Disorder Additional Family Medical History / Comment(s): Patient has 5 sisters and one has depression with suicidal ideation. Patient has 3 brothers with no major medical problems. He has 4 sons that are healthy. Medications and Allergies Home Medications Medication Instructions Recorded Confirmed Type Losartan [Cozaar] 50 mg PO DAILY tab 07/18/15 12/25/16 Rx OLANZapine [ZyPREXA] 2.5 mg PO DAILY tab 07/18/15 12/25/16 Rx Venlafaxine HCl ER [Effexor XR] 300 mg PO DAILY cap.er.24h 07/18/15 12/25/16 Rx lamoTRIgine [LaMICtal] 50 mg PO HS 01/17/16 12/25/16 History lamoTRIgine [LaMICtal] 100 mg PO BID@0700,1730 01/17/16 12/25/16 History Atorvastatin [Lipitor] 20 mg PO HS 12/16/16 12/25/16 History Furosemide [Lasix] 40 mg PO DAILY 12/16/16 12/25/16 History Ipratropium-Albuterol Nebulize 3 ml INHALATION RT-Q4H PRN 12/16/16 12/25/16 History [Duoneb 0.5 mg-3 mg/3 ml Soln] Metolazone [Zaroxolyn] 2.5 mg PO DAILY 12/16/16 12/25/16 History Nitroglycerin Sl Tabs [Nitrostat] 0.4 mg SUBLINGUAL Q5M PRN 12/16/16 12/25/16 History traZODone HCL [Desyrel] 100 mg PO HS 12/16/16 12/25/16 History Budesonide/Formoterol Fumarate 2 puff INHALATION BID #1 inhaler 12/19/16 Rx [Symbicort 160-4.5 Mcg Inhaler] Metoprolol Tartrate [Lopressor] 50 mg PO BID #60 tab 12/19/16 12/25/16 Rx Diltiazem Cd [Cardizem CD] 180 mg PO DAILY 12/25/16 12/25/16 History OLANZapine [ZyPREXA] 15 mg PO HS 12/25/16 12/25/16 History Rivaroxaban [Xarelto] 20 mg PO AC-SUPPER #0 12/25/16 12/25/16 Rx Spironolactone [Aldactone] 25 mg PO DAILY 12/25/16 12/25/16 History Allergies Allergy/AdvReac Type Severity Reaction Status Date / Time No Known Allergies Allergy Verified 12/25/16 07:39 Physical Exam Vitals: Vital Signs Temp Pulse Resp BP Pulse Ox 10/07/18 12:40 98.5 F 70 18 134/86 96 Intake and Output 10/07/18 10/07/18 10/07/18 06:59 14:59 22:59 Other: Voiding Method Toilet Weight 108.7 kg General: [non toxic], [no distress], [appears at stated age] Derm: [warm], [dry] Head: [atraumatic], [normocephalic], [symmetric] Eyes: [EOMI], [no lid lag], [anicteric sclera] Mouth: [no lip lesion], [mucus membranes moist] Cardiovascular: [S1S2 reg], [no murmur], [positive DP pulse bilateral] Lungs: [CTA bilateral], [no rhonchi, no rales] , [no accessory muscle use] Abdominal: [soft], [ nontender to palpation], [no guarding], [no appreciable organomegaly] Ext: [no gross muscle atrophy], [no edema], [no contractures] Neuro: [ CN II-XI grossly intact], [no focal neuro deficits] Psych: [Alert], [oriented], [appropriate affect] Results CBC & Chem 7: 10/07/18 14:17 10/07/18 14:17 Labs: Abnormal Lab Results - Last 24 Hours (Table) 10/07/18 10/07/18 Range/Units 14:17 14:17 Hgb 17.6 H (13.0-17.5) gm/dL Hct 54.2 H (39.0-53.0) % Lymphocytes # 0.9 L (1.0-4.8) k/uL Carbon Dioxide 31 H (22-30) mmol/L Glucose 140 H (74-99) mg/dL AST 16 L (17-59) U/L Thrombosis Risk Factor Assmnt - Choose All That Apply Any of the Below Risk Factors Present?: Yes Each Factor Represents 1 point: Abnormal pulmonary function (COPD), Age 41-60 years, Obesity (BMI >25) Other Risk Factors: No Other congenital or acquired thrombophilia - If yes, enter type in comment: No Thrombosis Risk Factor Assessment Total Risk Factor Score: 3 Thrombosis Risk Factor Assessment Level: Moderate Risk Assessment and Plan Assessment: Assessment and Plan 1. Chest pain: Unknown etiology, concerns for ACS. Pain management with Tylenol , [place], Nitrostat and Morphine IV PRN. Continue Lipitor 20 mg PO QHS. Trend 3 Trop/EKG to r/o ACS. Coronary angiogram from 11/2016 shows non obstructive cath. FU Cardiology, Echocardiogram. 2. HFrEF: Stable. Echocardiogram from 11/2016 shows EF 50-55% with mild LVH. Continue Lasix 40 mg PO QD, Losartan 50 mg PO QD, Metolazone 2.5 mg PO QD, Metoprolol 50 mg PO BID, Spironolactone 25 mg PO QD. Ins and Outs. Daily weights. FU Cardiology 3. COPD: Stable. DuoNeb Q4H PRN for SOB/wheezing, Symbicort [address] Higgins outPT. O2 per NC to maintain O2 sat > 92%. Smoking cessation. 4. Atrial fibrillation: Rate controlled with Diltiazem 180 mg PO QD. Anticoagulate with Xarelto 20 mg PO QHS. Keep K > 4 and Mg > 2. Telemetry monitoring. FU Cardiology 5. Hypertension: BP 134/86. Continue Metoprolol, Spironolactone, Losartan, Lasix + Metolazone. Monitor vitals, adjust medications as necessary. 7. Bipolar disorder and Depression: States does not take Lamictal anymore. Continue Venlafaxine 300 mg PO QD and Trazodone 100 mg PO QHS. 8. Polycythemia: Hg 17.6 Hct 54.2 MCV 92.6. Likely concentration from dehydration or secondary from smoking. 9. DVT/GI Prophylaxis: SCD boots only. Trend Trop/EKG to r/o ACS. Will follow Cardiology recommendations.
[2018-10-07] MEDS ORDERED: RIVAROXABAN 15 MG TAB PO SCH (17:30)
[2018-10-07] MEDS ORDERED: SYMBICORT 160-4.5 MCG INHALER INHALATION SCH (20:00)
[2018-10-07] MEDS: ATORVASTATIN 20 MG TAB PO SCH (20:10)
[2018-10-07] MEDS: MORPHINE SULFATE 2 MG/ML SYRINGE IV PRN (20:10)
[2018-10-07] MEDS: traZODone HCL 100 MG TAB PO SCH (20:10)
[2018-10-07] MEDS ORDERED: METOPROLOL TARTRATE 50 MG TAB PO SCH (21:00)
[2018-10-08] MEDS: HYDROcodone/APAP 5-325MG 1 EACH TAB PO PRN ×4 (00:38→23:05)
[2018-10-08 01:36] LABS: Creatine Kinase 29 U/L (55-170)
[2018-10-08 01:49] LABS: Creatine Kinase MB 0.5 ng/mL (0.0-2.4); Troponin I <0.012 ng/mL (0.000-0.034)
[2018-10-08] MEDS: MORPHINE SULFATE 2 MG/ML SYRINGE IV PRN ×4 (01:58→19:47)
--- NOTE | 2018-10-08 07:34 | PN ---
PROGRESS NOTE Mr. Noonan is a 53-year-old male who presented with symptoms of chest discomfort. Patient has been followed by Dr. Steve Ziegler on a regular basis. He has history of chronic tobacco use, history of paroxysmal atrial fibrillation, hypertension, and hyperlipidemia. He came in with progressive dyspnea and palpitation. He had chest discomfort that was sharp. He has been coughing and continues to wheeze. He denies any dizziness. He has occasional peripheral edema. In the past, there were discussion regarding anticoagulation with Coumadin. Patient has been noncompliant and was not willing to have a lab data performed on a regular basis. He presented to [facility] and his EKG showed that he was in sinus mechanism. He has underwent cardiac catheterization in November 2016 that revealed no evidence of high-grade stenosis with mild global hypokinesis. . MEDICATIONS: At this time include Lipitor 20 mg daily, furosemide 40 mg daily, Cozaar 50 mg daily, Xarelto 15 mg daily, spironolactone 25 mg daily, trazodone, and venlafaxine. REVIEW OF SYSTEMS: RESPIRATORY SYSTEM: He has cough and wheezing. He has chronic tobacco use. GI SYSTEM: No recent GI bleed. No peptic ulcer disease. SYSTEM: No dysuria or hematuria. NERVOUS SYSTEM: No stroke or seizure. PHYSICAL EXAMINATION: He is a 53-year-old male, alert, oriented, in no apparent distress. Blood pressure 140/90 with a heart rate in the 70s. Lungs with scattered wheezes bilaterally. HEART: Regular rate and rhythm, S1, S2. No S3. No rub appreciated. ABDOMEN: Soft, obese, nontender. EXTREMITIES: No edema. LAB DATA: Revealed troponin less than 0.012, BUN and creatinine of 11 and 0.95, potassium 4.7, hemoglobin of 17.6. IMPRESSION: 1. Chest discomfort atypical for ischemic heart disease. 2. Paroxysmal atrial fibrillation remains in sinus mechanism. 3. Exacerbation of chronic obstructive pulmonary disease. RECOMMENDATIONS: From the cardiac standpoint, we will continue present therapy, increase his level of activity. I have discussed with him again the importance of smoking cessation and depending on his progress, further recommendation will be made. MMODL / IJN: [id number] /
[2018-10-08] MEDS: SPIRONOLACTONE 25 MG TAB PO SCH (08:04)
[2018-10-08] MEDS: LOSARTAN 50 MG TAB PO SCH (08:04)
[2018-10-08] MEDS: VENLAFAXINE HCL ER 150 MG CAP PO SCH (08:04)
[2018-10-08] MEDS: FUROSEMIDE 40 MG TAB PO SCH (08:04)
[2018-10-08] MEDS ORDERED: DILTIAZEM CD 180 MG CAP.ER.24H PO SCH (09:00)
[2018-10-08] MEDS ORDERED: METOLAZONE 2.5 MG TAB PO SCH (09:00)
[2018-10-08] MEDS ORDERED: IPRATROPIUM-ALBUTEROL 3 ML NEB INHALATION PRN (09:01)
--- NOTE | 2018-10-08 11:24 | ECHOF ---
Referral Reason:cp MEASUREMENTS -------- HEIGHT: 167.6 cm WEIGHT: 108.4 kg BP: 134/86 RVIDd: 3.6 cm (< 3.3) IVSd: 1.7 cm (0.6 - 1.1) LVIDd: 4.3 cm (3.9 - 5.3) LVPWd: 1.6 cm (0.6 - 1.1) IVSs: 2.0 cm LVIDs: 3.1 cm LVPWs: 1.9 cm LA Diam: 4.4 cm (2.7 - 3.8) LAESV Index (A-L): 33.33 ml/m Ao Diam: 3.4 cm (2.0 - 3.7) AV Cusp: 2.0 cm (1.5 - 2.6) EPSS: 0.8 cm MV E Hung: 0.92 m/s MV DecT: 200 ms MV A Hung: 0.85 m/s MV E/A Ratio: 1.09 RAP: 5.00 mmHg RVSP: 21.89 mmHg MV EF SLOPE: 74.44 mm/s (70 - 150) MV EXCURSION: 1.68 cm (> 18.000) FINDINGS -------- Sinus rhythm. This was a technically adequate study. The left ventricular size is normal. There is severe concentric left ventricular hypertrophy. Ove rall left ventricular systolic function is normal with, an EF between 55 - 60 %. The right ventricle is mildly enlarged. LA is midly dilated 29-33ml/m2. The right atrium is normal in size. The aortic valve is trileaflet, and appears structurally normal. No aortic stenosis or regurgitation. The mitral valve leaflets are mildly thickened. Mild mitral regurgitation is present. Mild tricuspid regurgitation present. Right ventricular systolic pressure is normal at < 35 mmHg. The right ventricular systolic pressure, as measured by Doppler, is 21.89mmHg. The pulmonic valve was not well visualized. There is no pulmonic regurgitation present. The aortic root size is normal. Normal inferior vena cava with normal inspiratory collapse consistent with estimated right atrial pre ssure of 5 mmHg. There is no pericardial effusion. CONCLUSIONS -------- 1. Sinus rhythm. 2. This was a technically adequate study. 3. The left ventricular size is normal. 4. There is severe concentric left ventricular hypertrophy. 5. Overall left ventricular systolic function is normal with, an EF between 55 - 60 %. 6. The right ventricle is mildly enlarged. 7. LA is midly dilated 29-33ml/m2. 8. The aortic valve is trileaflet, and appears structurally normal. No aortic stenosis or regurgitati on. 9. The mitral valve leaflets are mildly thickened. 10. Mild mitral regurgitation is present. 11. Mild tricuspid regurgitation present. 12. Right ventricular systolic pressure is normal at < 35 mmHg. 13. The pulmonic valve was not well visualized. 14. The aortic root size is normal. 15. Normal inferior vena cava with normal inspiratory collapse consistent with estimated right atrial pressure of 5 mmHg. 16. There is no pericardial effusion. HOME DECORATOR: JOHNNY Angulo
--- NOTE | 2018-10-08 13:29 | P.PN ---
Subjective Progress Note Date: 10/08/18 Principal diagnosis: Chest pain Patient seen and examined. No acute events overnight. Patient reports improvement in his chest pain. Patient complains of shortness of breath, wheezing and chest tightness. No palpitations. No dizziness. He also complains of lower back pain, associated with the bed he slept well last night. Objective - Vital Signs Vital signs: Vital Signs Temp 97.0 F L 10/08/18 11:48 Pulse 69 10/08/18 11:48 Resp 20 10/08/18 11:48 BP 165/96 10/08/18 11:48 Pulse Ox 92 L 10/08/18 11:48 Intake & Output 10/07/18 10/08/18 10/08/18 18:59 06:59 18:59 Intake Total 620 222 Balance 620 222 Weight 108.7 kg Intake: Oral 620 222 Other: Voiding Method Toilet Toilet # Voids 1 1 - Exam General: [non toxic], [no distress], [appears at stated age] Derm: [warm], [dry] Head: [atraumatic], [normocephalic], [symmetric] Eyes: [EOMI], [no lid lag], [anicteric sclera] Mouth: [no lip lesion], [mucus membranes moist] Cardiovascular: [S1S2 reg], [no murmur], [positive DP pulse bilateral] Lungs: [Diffuse wheezing bilateral], [no rhonchi, no rales] , [no accessory muscle use] Abdominal: [soft], [ nontender to palpation], [no guarding], [no appreciable organomegaly] Ext: [no gross muscle atrophy], [no edema], [no contractures], [tenderness to palpation over the left paraspinal muscles] Neuro: [no focal neuro deficits] Psych: [Alert], [oriented], [appropriate affect] - Labs CBC & Chem 7: 10/07/18 14:17 10/07/18 14:17 Labs: Abnormal Lab Results - Last 24 Hours (Table) 10/07/18 10/07/18 10/07/18 Range/Units 14:17 14:17 14:17 Hgb 17.6 H (13.0-17.5) gm/dL Hct 54.2 H (39.0-53.0) % Lymphocytes # 0.9 L (1.0-4.8) k/uL Carbon Dioxide 31 H (22-30) mmol/L Glucose 140 H (74-99) mg/dL AST 16 L (17-59) U/L Total Creatine Kinase 32 L (55-170) U/L 10/08/18 Range/Units 00:32 Hgb (13.0-17.5) gm/dL Hct (39.0-53.0) % Lymphocytes # (1.0-4.8) k/uL Carbon Dioxide (22-30) mmol/L Glucose (74-99) mg/dL AST (17-59) U/L Total Creatine Kinase 29 L (55-170) U/L Assessment and Plan Assessment: 1. COPD exacerbation: Stable. DuoNeb Q4H scheduled + PRN for SOB/wheezing, Symbicort 2 puff BID. Will start 5 days of Prednisone 50 mg PO QD. Sees Dr. Higgins outPT. O2 per [place] to maintain O2 sat > 92%. Smoking cessation. 2. Chest pain: Unknown etiology, concerns for ACS. Pain management with Tylenol , [place], Nitrostat and Morphine IV PRN. Continue Lipitor 20 mg PO QHS. Trop < 0.012 x 2 with EKG showing NSR. Coronary angiogram from 11/2016 shows non obstructive cath. Echocardiogram shows EF 55-60% with severe LVH. FU Cardiology 3. HFpEF: Stable. Echocardiogram from 11/2016 shows EF 50-55% with mild LVH, severe LVH on repeat. Continue Lasix 40 mg PO QD, Losartan 50 mg PO QD, Metolazone 2.5 mg PO QD, Metoprolol 50 mg PO BID, Spironolactone 25 mg PO QD. Ins and Outs. Daily weights. FU Cardiology 4. Atrial fibrillation: Rate controlled with Diltiazem 180 mg PO QD. Anticoagulate with Xarelto 20 mg PO QHS. Keep K > 4 and Mg > 2. Telemetry monitoring. FU Cardiology 5. Hypertension: BP 165/96. Continue Metoprolol, Spironolactone, Losartan, Lasix + Metolazone. Monitor vitals, adjust medications as necessary. 7. Bipolar disorder and Depression: States does not take Lamictal anymore. Continue Venlafaxine 300 mg PO QD and Trazodone 100 mg PO QHS. 8. Polycythemia: Hg 17.6 Hct 54.2 MCV 92.6. Likely concentration from dehydration or secondary from smoking. Will continue to monitor. 9. DVT/GI Prophylaxis: SCD boots only. ACS ruled out. Patient being treated for COPD exacerbation. Will follow Cardiology recommendations. Likely discharge tomorrow.
[2018-10-08] MEDS: predniSONE 50 MG TAB PO SCH (14:09)
[2018-10-08] MEDS: IPRATROPIUM-ALBUTEROL 3 ML NEB INHALATION SCH ×2 (15:17→19:02)
[2018-10-08] MEDS ORDERED: RIVAROXABAN 20 MG TAB PO SCH (17:30)
[2018-10-08] MEDS: SYMBICORT 160-4.5 MCG INHALER INHALATION SCH (19:03)
[2018-10-08] MEDS: APIXABAN 5 MG TAB PO SCH (19:47)
[2018-10-08] MEDS: ATORVASTATIN 20 MG TAB PO SCH (19:47)
[2018-10-08] MEDS: traZODone HCL 100 MG TAB PO SCH (19:47)
[2018-10-08] MEDS ORDERED: MAG HYDROX/AL HYDROX/SIMETH 30 ML CUP PO PRN (20:25)
[2018-10-09] MEDS: MORPHINE SULFATE 2 MG/ML SYRINGE IV PRN ×3 (00:31→09:06)
[2018-10-09] MEDS: LOSARTAN 50 MG TAB PO SCH (07:41)
[2018-10-09] MEDS: predniSONE 50 MG TAB PO SCH (07:41)
[2018-10-09] MEDS: SPIRONOLACTONE 25 MG TAB PO SCH (07:41)
[2018-10-09] MEDS: FUROSEMIDE 40 MG TAB PO SCH (07:41)
[2018-10-09] MEDS: APIXABAN 5 MG TAB PO SCH (07:41)
[2018-10-09] MEDS: VENLAFAXINE HCL ER 150 MG CAP PO SCH (07:41)
[2018-10-09 08:09] VITALS: BP 149/84; RESP 18; TEMP 97.8
[2018-10-09] MEDS: SYMBICORT 160-4.5 MCG INHALER INHALATION SCH (08:40)
[2018-10-09] MEDS: IPRATROPIUM-ALBUTEROL 3 ML NEB INHALATION SCH ×2 (08:40→12:43)
--- NOTE | 2018-10-09 11:35 | P.DS ---
Providers Date of admission: 10/07/18 12:43 Expected date of discharge: 10/09/18 Attending physician: Jai Crouch MD Consults: 10/07/18 12:51 Consult Physician Routine Consulting Provider: Judy Bravo Consult Reason/Comments: Chest pain Do you want consulting provider notified?: Yes Primary care physician: Stated None - Discharge Diagnosis(es) (1) COPD exacerbation Current Visit: Yes Status: Acute (2) (HFpEF) heart failure with preserved ejection fraction Current Visit: Yes Status: Acute (3) Hypertension Current Visit: Yes Status: Acute (4) Depression Current Visit: Yes Status: Acute (5) Polycythemia Current Visit: Yes Status: Acute (6) Atrial fibrillation Current Visit: No Status: Acute (7) Chest pain Current Visit: No Status: Acute Hospital Course: 53-year-old male with PMH of CHF, COPD, hypertension, bipolar disorder and atrial fibrillation presents the ED for chest pain. He is a transfer from [facility], capital project engineer is Dr. Ziegler. Patient reports waking up at 4 AM this morning. Patient reports chest pain as he was cleaning dishes. Pain is located in the left side of the chest. Pain is 8 out of 10 in severity. Pain is pressure-like in sensation. Pain radiates to left arm and is associated with left arm numbness. Patient reports taking 2 nitro pills which did not help. There are no changes with movement or with deep inspiration. Patient is unable to describe his exercise tolerance as he is usually bedridden. He denies any PND or orthopnea. Of note, patient underwent cardiac catheterization in November 2016, results showed no significant obstruction. Of note, patient reports smoking 5-6 cigarettes a day for the past 30 years. He denies any previous history of KS or CVA. No early family history of KS. He denies any headaches, lower extremity edema, nausea, vomiting, fever, cough, palpitations, changes in urination or bowel habits. No changes in appetite or weight. He is admitted for unstable angina, rule out acute coronary syndrome. Cardiology on consult. With regard to his chest pain, there was some concern for acute coronary syndrome. His pain was controlled with Tylenol, [place], Nitrostat and morphine as needed. Troponin was less than 0.0122 with EKG showing normal sinus rhythm. There is an coronary angiogram from November 2016 which showed a nonobstructive cath. Echocardiogram was done and showed EF of 55-60% with severe LVH. Cardiology was consulted and recommended no further workup. Otherwise, his home medications of losartan, metolazone, metoprolol and spironolactone were resumed. Diltiazem was resumed for his atrial fibrillation. Cardiology also recommended switching his anticoagulation from [place] to tell a course. Venlafaxine and trazodone were resumed for his bipolar disorder and depression. Patient was also noted to be some COPD exacerbation throughout his hospitalization. He started on duo nebulization treatments as needed, Symbicort and oral prednisone taper. Patient was seen and examined prior to discharge. No acute events overnight. Patient reports receiving breathing treatments overnight. Patient reports that his breathing is back to baseline. Patient states that he is on 3 L continuous home oxygen. He denies any chest pain or shortness of breath at this time. He is looking for to going home. General: [non toxic], [no distress], [appears at stated age] Derm: [warm], [dry] Head: [atraumatic], [normocephalic], [symmetric] Eyes: [EOMI], [no lid lag], [anicteric sclera] Mouth: [no lip lesion], [mucus membranes moist] Cardiovascular: [S1S2 reg], [no murmur], [positive DP pulse bilateral] Lungs: [Decreased breath sounds bilaterally], [no rhonchi, no rales] , [no accessory muscle use] Abdominal: [soft], [ nontender to palpation], [no guarding], [no appreciable organomegaly] Ext: [no gross muscle atrophy], [no edema], [no contractures], [tenderness to palpation over the left paraspinal muscles] Neuro: [no focal neuro deficits] Psych: [Alert], [oriented], [appropriate affect] 1. COPD exacerbation: Stable. DuoNeb Q4H scheduled + PRN for SOB/wheezing, Symbicort 2 puff BID. Will start 5 days of Prednisone 50 mg PO QD. Sees Dr. Higgins outPT. O2 per [place] to maintain O2 sat > 92%. Smoking cessation. 2. Chest pain: Unknown etiology, concerns for ACS. Pain management with Tylenol , [place], Nitrostat and Morphine IV PRN. Continue Lipitor 20 mg PO QHS. Trop < 0.012 x 2 with EKG showing NSR. Coronary angiogram from 11/2016 shows non obstructive cath. Echocardiogram shows EF 55-60% with severe LVH. Cardiology recommends no further intervention. 3. HFpEF: Stable. Echocardiogram from 11/2016 shows EF 50-55% with mild LVH, severe LVH on repeat. Continue Lasix 40 mg PO QD, Losartan 50 mg PO QD, Metolazone 2.5 mg PO QD, Metoprolol 50 mg PO BID, Spironolactone 25 mg PO QD. Ins and Outs. Daily weights. 4. Atrial fibrillation: Rate controlled with Diltiazem 180 mg PO QD. Anticoagulate with Xarelto 20 mg PO QHS, changed to Eliquis. Keep K > 4 and Mg > 2. Telemetry monitoring. FU Cardiology 5. Hypertension: BP 149/84. Continue Metoprolol, Spironolactone, Losartan, Lasix + Metolazone. Monitor vitals, adjust medications as necessary. 7. Bipolar disorder and Depression: States does not take Lamictal anymore. Continue Venlafaxine 300 mg PO QD and Trazodone 100 mg PO QHS. 8. Polycythemia: Hg 17.6 Hct 54.2 MCV 92.6. Likely concentration from dehydration or secondary from smoking. Will continue to monitor. 9. DVT/GI Prophylaxis: SCD boots only. ACS ruled out. COPD exacerbation treated, patient stable. On baseline 3 L home oxygen. Will discharge today. Pertinent Studies: Echocardiogram Patient Condition at Discharge: Stable Plan - Discharge Summary Discharge Rx Participant: No New Discharge Prescriptions: New Apixaban [Eliquis] 5 mg PO BID #180 tab Fluticasone/Salmeterol [Fluticasone-Salmeterol 113-14] 1 puff INHALATION BID #1 inhaler Furosemide [Lasix] 40 mg PO DAILY #30 tab predniSONE 50 mg PO DAILY #3 tab Spironolactone [Aldactone] 25 mg PO DAILY #30 tab Continue OLANZapine [ZyPREXA] 2.5 mg PO DAILY tab lamoTRIgine [LaMICtal] 50 mg PO HS Atorvastatin [Lipitor] 20 mg PO HS Albuterol Inhaler [Ventolin Hfa Inhaler] 2 puff INHALATION RT-Q4H PRN PRN Reason: Shortness Of Breath OLANZapine [ZyPREXA] 20 mg PO HS Aspirin 81 mg PO DAILY Albuterol Nebulized [Ventolin Nebulized] 2.5 mg INHALATION RT-TID PRN PRN Reason: Wheezing Metoprolol Tartrate [Lopressor] 25 mg PO TID lamoTRIgine [LaMICtal] 100 mg PO BID Losartan [Cozaar] 25 mg PO DAILY Venlafaxine HCl ER [Effexor XR] 300 mg PO DAILY Diltiazem Cd [Cardizem CD] 180 mg PO DAILY traZODone HCL [Desyrel] 100 mg PO PC-SUPPER Verapamil HCl [Verapamil ER] 240 mg PO DAILY Discontinued Nitroglycerin Sl Tabs [Nitrostat] 0.4 mg SUBLINGUAL Q5M PRN PRN Reason: Chest Pain Discharge Medication List OLANZapine [ZyPREXA] 2.5 mg PO DAILY tab 07/18/15 [Rx] lamoTRIgine [LaMICtal] 50 mg PO HS 01/17/16 [History] Atorvastatin [Lipitor] 20 mg PO HS 12/16/16 [History] Albuterol Inhaler [Ventolin Hfa Inhaler] 2 puff INHALATION RT-Q4H PRN 10/07/18 [ History] Albuterol Nebulized [Ventolin Nebulized] 2.5 mg INHALATION RT-TID PRN 10/07/18 [ History] Aspirin 81 mg PO DAILY 10/07/18 [History] OLANZapine [ZyPREXA] 20 mg PO HS 10/07/18 [History] Apixaban [Eliquis] 5 mg PO BID #180 tab 10/08/18 [Rx] Diltiazem Cd [Cardizem CD] 180 mg PO DAILY 10/08/18 [History] Losartan [Cozaar] 25 mg PO DAILY 10/08/18 [History] Metoprolol Tartrate [Lopressor] 25 mg PO TID 10/08/18 [History] Venlafaxine HCl ER [Effexor XR] 300 mg PO DAILY 10/08/18 [History] Verapamil HCl [Verapamil ER] 240 mg PO DAILY 10/08/18 [History] lamoTRIgine [LaMICtal] 100 mg PO BID 10/08/18 [History] traZODone HCL [Desyrel] 100 mg PO PC-SUPPER 10/08/18 [History] Fluticasone/Salmeterol [Fluticasone-Salmeterol 113-14] 1 puff INHALATION BID #1 inhaler 10/09/18 [Rx] Furosemide [Lasix] 40 mg PO DAILY #30 tab 10/09/18 [Rx] Spironolactone [Aldactone] 25 mg PO DAILY #30 tab 10/09/18 [Rx] predniSONE 50 mg PO DAILY #3 tab 10/09/18 [Rx] Follow up Appointment(s)/Referral(s): Jennifer Ziegler MD [STAFF PHYSICIAN] - 1 Week (Office will call with an appt) Nathalia Mims MD [STAFF PHYSICIAN] - 1 Week Patient Instructions/Handouts: Chest Pain (GEN) Activity/Diet/Wound Care/Special Instructions: business support coordinator Eliquis at [facility], 30 day supply Diet: HEART healthy diet Please take all medications as advised. Please follow-up with your primary care provider within 1-2 days of discharge. Please follow-up with cardiology Dr. Ziegler within 1 week of discharge. Please follow-up with pulmonology Dr. Mims within 1 week of discharge. Discharge Disposition: HOME SELF-CARE
[2018-10-09 13:19] VITALS: PULSE 75
== END 2018-10-09 16:11 | disposition home or self-care (01) ==
LOC: 1SOBS 12:43
PROVIDERS: ADMIT Family Medicine; ATTEND Family Medicine
DX: R07.89 Other chest pain (principal); J44.1 Chronic obstructive pulmonary disease with (acute) exacerbation; I11.0 Hypertensive heart disease with heart failure; I50.30 Unspecified diastolic (congestive) heart failure; I48.0 Paroxysmal atrial fibrillation; Z91.19 Patient's noncompliance with other medical treatment and regimen; J96.10 Chronic respiratory failure, unspecified whether with hypoxia or hypercapnia; Z99.81 Dependence on supplemental oxygen; F17.210 Nicotine dependence, cigarettes, uncomplicated; F31.9 Bipolar disorder, unspecified; I50.9 Heart failure, unspecified; Z74.01 Bed confinement status; G47.33 Obstructive sleep apnea (adult) (pediatric); Z99.89 Dependence on other enabling machines and devices; G89.29 Other chronic pain; M54.5 Low back pain; K21.9 Gastro-esophageal reflux disease without esophagitis; D75.1 Secondary polycythemia; E66.9 Obesity, unspecified; Z68.38 Body mass index [BMI] 38.0-38.9, adult; E78.5 Hyperlipidemia, unspecified; Z79.51 Long term (current) use of inhaled steroids; Z79.899 Other long term (current) drug therapy; Z79.01 Long term (current) use of anticoagulants; Z86.59 Personal history of other mental and behavioral disorders; Z80.3 Family history of malignant neoplasm of breast; Z82.49 Family history of ischemic heart disease and other diseases of the circulatory system; Z81.8 Family history of other mental and behavioral disorders
CPT/HCPCS: 96374; 96376 ×2; 94640 ×4; 93306; 80053; 82550 ×2; 82553 ×2; 84484 ×2; 85025; G0378 ×3; G0379; J2270 ×3; J7512 ×2

== ENCOUNTER → 2023-07-31 | Outpatient (CLI) | payer OTHER ==
--- NOTE | 2023-08-01 09:10 | PE ---
EXAMINATION TYPE: PET CT fusion skull to thigh DATE OF EXAM: 07/31/2023 CLINICAL INDICATION:Male, 58 years old with history of R91.1 SOLITARY PULMONARY NODULE; TECHNIQUE: Following the intravenous administration of 11.37 mCi of F-18 FDG, whole body images are performed from the skull base to the midthigh. Images are reviewed on the computer in the coronal, axial, and sagittal planes. Reconstructed rotating images are created on independent workstation and reviewed on the computer. A non-contrast CT is performed in conjunction with the PET scan. Glucose level 122 mg/dL CT DLP: 526 mGycm, Automated exposure control for dose reduction was used. COMPARISON: CT None, PET/CT None, FINDINGS: Mediastinal SUV mean is 1.8. Hepatic parenchyma SUV mean is 2.3. SKULL BASE AND NECK: Mild uptake within the left neck lymph node near the angle of mandible. Max SUV 3.9. And on the right measuring Max SUV 3.0. CHEST, MEDIASTINUM, AND HILAR REGION: No suspicious radiotracer activity. No pulmonary nodules are identified. No priors are available for comparison. ABDOMEN AND PELVIS: No suspicious radiotracer activity. MUSCULOSKELETAL STRUCTURES: No suspicious radiotracer activity. OTHER CT: Paranasal sinus disease in the right maxillary sinus. Atherosclerosis of the arterial vascu lature. Coronary artery calcifications. Few scattered colonic diverticula. Fat-containing umbilical h ernia. Fat-containing inguinal hernias. IMPRESSION: 1. No suspicious radiotracer activity. No pulmonary nodules are identified, there is no priors at th e time of this dictation. 2. Mild FDG activity within bilateral neck lymph nodes likely reactive.
== END | disposition home or self-care (01) ==
LOC: RADPETMAIN 11:14
PROVIDERS: ATTEND Internal Medicine Critical Care Medicine
DX: R91.1 Solitary pulmonary nodule (principal)
CPT/HCPCS: 78815; A9552

== ENCOUNTER 2024-08-22 19:15 | Outpatient (CLI) | payer OTHER ==
--- NOTE | 2024-08-24 13:10 | P.PCN ---
Date of Procedure: 08/22/24 Operative Findings: Polysomnography report Date of service is 08/22/2024 Pertinent history This is a 59-year-old male patient with known history of severe COPD with an FEV1 of 27% of predicted. The patient also has congestion heart failure with systolic heart failure and ejection fraction of 25% which subsequently improved with medical therapy. The patient was seen in office for hypersomnia. Previous evaluations was done on this patient revealed moderate disease with an AHI of 20 worsening REM sleep with an AHI of 40 during REM. The patient demonstrated also nocturnal oxygen desaturation. He was unable to tolerate BiPAP therapy and he was utilizing O2 only overnight. During her last visitation in the office, the patient requested reevaluation. He seemed to be much more committed and utilizing treatment based on his underlying ongoing cardiovascular complications. He is also known to have chronic atrial fibrillation, bipolar disorder, hypertension and hyperlipidemia and the patient is morbidly obese. His body mass index is 40.0 Pertinent physical findings The patient has a body mass index of 40 with a weight of 248 pounds Technical description The patient was studied using a standard complex polysomnography protocol that included recording of the Lead II EKG, Central, occipital and frontal EEG, right and left outer canthus EOG, submental EMG, right and left anterior tibialis EMG, respiratory airflow by thermocouple and or pressure/flow transducer, respiratory efforts by abdominal and thoracic PVDF belts, oxygen saturation by cable oximetry. Position by observation synchronized the PSG. Equipment used: [employer]. Sleep characteristics The total recording duration was 87.0 minutes. Total sleep time was 350.5 minutes. The wake after sleep onset time was 28 minutes. Overall sleep efficiency was calculated to be at 90.6%. The latency to sleep onset was 10 minutes. Latency to REM sleep was 203 minutes. The sleep architecture was catheterized by 9.6% stage I, 85.4% stage II, 0% stage III, and a total of 8.8% REM sleep. The total arousal index was 16.3 Respiratory analysis The patient encountered a total of 79 obstructive events of which 0 were obstructive apneas, 0 were mixed apneas and 79 obstructive hypopneas. The patient had no central apneas noted. The overall apnea-hypopnea index was 11.6. The patient's disease was worse during REM sleep. AHI during REM was 73.5. Obviously, the patient is disease seems to be more worse during REM sleep associated with some nocturnal oxygen desaturations. Oxygenation analysis The testing was started without oxygen therapy. The patient had a baseline pulse ox of 82% while awake. Lowest oxygen saturation was 59% and the patient spent approximately 6 hours of sleep with pulse ox of below 89%. Minimum pulse ox during REM sleep was 59% consistent with severe oxygen desaturation at baseline and during sleep. Sleep continuity summary There was a total of 95 arousals with an arousal index of 16.3. Respiratory arousal index was 1.4 Periodic limb movements There was a total of 9 periodic lung movement activity associated with arousals with an index of 1.5. Cardiac summary The patient was in a normal sinus rhythm. The average heart rate was 91 with a minimum heart rate of 82 Assessment Mild obstructive sleep apnea, REM specific with an AHI of 11.6 Chronic hypoxemia with severe nocturnal oxygen desaturations with a minimum pulse ox of 59% during REM sleep Abnormal sleep architecture with overexpression of stage II sleep and diminished delta wave and REM Morbid obesity with a BMI of 40.0 Paroxysmal atrial fibrillation, current rhythm is sinus Congestion heart failure, seems to be well optimized for now with improvement in left ventricular ejection fraction on medical treatment Severe COPD with an FEV1 of 27% of predicted at baseline Hypertension Hyperlipidemia Chronic smoker Plan I am going to discussed the findings with the patient. This disease severity is mild. Nevertheless, based on the abnormality seen in the sleep architecture and is extensive number of comorbidities, the patient would benefit from CPAP/BiPAP therapy. I think it is worthwhile to offer this patient a titration in the lab to make the appropriate adjustments regarding his MAS[place] treatment. I favor treating this patient with CPAP/BiPAP and possibly O2 overnight despite the mild nature of obstructive sleep apnea. As such, the patient will be asked to come into the sleep center to undergo a CPAP/BiPAP titration.
== END 2024-08-23 05:00 | disposition home or self-care (01) ==
LOC: 3 N SLEEP 19:15
PROVIDERS: ATTEND Internal Medicine Critical Care Medicine
DX: G47.33 Obstructive sleep apnea (adult) (pediatric) (principal); G47.36 Sleep related hypoventilation in conditions classified elsewhere; E66.01 Morbid (severe) obesity due to excess calories; I48.0 Paroxysmal atrial fibrillation; I11.0 Hypertensive heart disease with heart failure; I48.20 Chronic atrial fibrillation, unspecified; E78.5 Hyperlipidemia, unspecified; F17.200 Nicotine dependence, unspecified, uncomplicated; J44.9 Chronic obstructive pulmonary disease, unspecified; R09.81 Nasal congestion; G47.52 REM sleep behavior disorder; F31.9 Bipolar disorder, unspecified; Z68.41 Body mass index [BMI] 40.0-44.9, adult; Z79.01 Long term (current) use of anticoagulants; Z79.51 Long term (current) use of inhaled steroids; Z79.899 Other long term (current) drug therapy
CPT/HCPCS: 95810

== ENCOUNTER 2024-09-18 19:05 | Outpatient (CLI) | payer OTHER ==
--- NOTE | 2024-09-26 18:51 | P.PCN ---
Date of Procedure: 09/18/24 Operative Findings: This is a 59-year-old male patient with known history of severe COPD with an FEV1 of 27% of predicted. The patient also has congestion heart failure with systolic heart failure and ejection fraction of 25% which subsequently improved with medical therapy. The patient was seen in office for hypersomnia. Previous evaluations was done on this patient revealed moderate disease with an AHI of 20 worsening REM sleep with an AHI of 40 during REM. The patient demonstrated also nocturnal oxygen desaturation. He was unable to tolerate BiPAP therapy and he was utilizing O2 only overnight. During her last visitation in the office, the patient requested reevaluation. He seemed to be much more committed and utilizing treatment based on his underlying ongoing cardiovascular complications. He is also known to have chronic atrial fibrillation, bipolar disorder, hypertension and hyperlipidemia and the patient is morbidly obese. His body mass index is 40.0. Noted the patient underwent a polysomnography on 08/24/2024 and the patient was found to have mild REM specific obstructive sleep apnea with an AHI of 11.6. He did encounter severe nocturnal oxygen desaturations. Based on that, the patient was asked to come into the sleep center to undergo a CPAP titration. Physical findings the weight is 248 pounds And the patient has a body mass index of 40 Technical description The patient was studied using a standard complex polysomnography protocol that included recording of the Lead II EKG, Central, occipital and frontal EEG, right and left outer canthus EOG, submental EMG, right and left anterior tibialis EMG, respiratory airflow by thermocouple and or pressure/flow transducer, respiratory efforts by abdominal and thoracic PVDF belts, oxygen saturation by cable oximetry. Position by observation synchronized the PSG. Equipment used: First Aid Shot Therapy. Stepwise CPAP titration was done to eliminate all obstructive respiratory events. Sleep architecture The total recording duration was 384.0 minutes. Total sleep time was 354.5 minutes. The wake after sleep onset time was 19 minutes. Overall sleep efficiency was 92.3%. Latency to sleep onset was 11 minutes. Latency to REM sleep was 240 minutes. The sleep architecture was characterized by 8% stage I, 87.7% stage II, 0% stage III and a total of 6.9% REM sleep. The total arousal index was 10.7 Respiratory analysis CPAP titration was started initially at a pressure of 5 cm of water and the pressure was gradually increased by increments of 1 cm to reach a maximum CPAP pressure of 9 cm of water. Oxygen was also added during the titration initially with a flow of 1 L and ultimately the flow was brought up to 4 ambulate around to 5 L. This was a successful CPAP titration. There was complete ablation of the obstructive respiratory events at the very CPAP pressure and the patient was able to maintain an oxygen saturation above 90% and oxygen flow of 4 L. No major obstructive respiratory events noted while being on CPAP therapy at a pressure of 9 cm. Oxygenation also improved. Noted the patient was in his side while his body position throughout the titration. Sleep continuity summary The patient had a total of 63 arousals with an index of 10.7. Respiratory arousal index was 0.2 Periodic limb movements There was a total of 988 periodic limb movement activity with an index of 167.2. This is consistent with severe periodic limb movement activity. There was only 6 periodic limb movement activity with arousals with an index of 1.0. Cardiac summary The average heart rate was 74 with a minimum heart rate of 71 and a maximum heart rate of 78 7. The patient has a normal sinus rhythm. Assessment Mild obstructive sleep apnea, REM specific with an AHI of 11.6 associated with severe nocturnal oxygen desaturation the patient underwent a successful CPAP titration. Abnormal sleep architecture with overexpression of stage II sleep and diminished delta wave and REM Morbid obesity with a BMI of 40.0 Paroxysmal atrial fibrillation, current rhythm is sinus Congestion heart failure, seems to be well optimized for now with improvement in left ventricular ejection fraction on medical treatment Severe COPD with an FEV1 of 27% of predicted at baseline Hypertension Hyperlipidemia Chronic smoker Periodic limb movements, severe, not causing significant arousals. Noted at the time of his original polysomnography, the patient did not have any major erythema with activity Plan Initiate CPAP therapy at a pressure of 9 cm of water and oxygen with a flow of 4 L/min The patient will be offered a large size AirFit F20 fullface mask This disease severity is mild. Nevertheless, based on the abnormality seen in the sleep architecture and is extensive number of comorbidities, the patient would benefit from CPAP. Implement good sleep hygiene measures Encourage weight loss Maintain regular sleep schedule See me back in the office in 30 to 90 days to assess clinical response and compliancy.
== END 2024-09-19 04:15 | disposition home or self-care (01) ==
LOC: 3 N SLEEP 19:05
PROVIDERS: ATTEND Internal Medicine Critical Care Medicine
DX: G47.33 Obstructive sleep apnea (adult) (pediatric) (principal); G47.36 Sleep related hypoventilation in conditions classified elsewhere; G47.52 REM sleep behavior disorder; E66.01 Morbid (severe) obesity due to excess calories; Z68.41 Body mass index [BMI] 40.0-44.9, adult; I11.0 Hypertensive heart disease with heart failure; I50.9 Heart failure, unspecified; I48.0 Paroxysmal atrial fibrillation; J44.9 Chronic obstructive pulmonary disease, unspecified; E78.5 Hyperlipidemia, unspecified; G47.61 Periodic limb movement disorder; F17.200 Nicotine dependence, unspecified, uncomplicated
CPT/HCPCS: 95811